=== PATIENT | female | born 1950 | race Caucasian/White ===

== ENCOUNTER 2018-08-09 00:44 | Outpatient (CLI) | payer MEDICARE, MEDICAID, SELFPAY ==
--- NOTE | 2018-08-09 09:30 | DI.MAMMO_ITS ---
SYMPTOM/DIAGNOSIS: SCREENING, Z12.31, PREVENTATIVE CARE Z00.00 MAMMOGRAM: 08/09 Mammograms were interpreted according to the usual protocol including computer analysis with CAD system, tomosynthesis and C view imaging. The breasts are of moderate density with fairly symmetrical distribution of fibroglandular tissue. No dominant mass or clumped microcalcification is identified in either breast. The current examination is compared with previous examinations including August 2016 and there has been no gross interval change in appearance in comparison with the previous studies. CONCLUSION: No specific evidence of malignancy at this time. Routine screening examinations are suggested at yearly intervals due to the family history of breast carcinoma. Category 1 breast density category B. MQSA ASSESSMENT OF FINDINGS: Negative. Category 1. Patient will receive a letter notifying them of these results. BI-RADS category B. There are scattered areas of fibroglandular density.
== END 2018-08-09 01:04 ==
PROVIDERS: PCP Nurse Practitioner Family; Visit Provider Physician Assistant Medical
DX: Z12.31 Encounter for screening mammogram for malignant neoplasm of breast (principal); Z80.3 Family history of malignant neoplasm of breast
CPT/HCPCS: 77063; 77067

== ENCOUNTER 2018-09-13 12:09 | Outpatient (REF) | payer MEDICARE, MEDICAID, SELFPAY ==
[2018-09-13 21:53] LABS: Cholesterol 238 mg/dL (50-200); Glucose 97 mg/dL (70-100); HDL Cholesterol 70 mg/dL (40-60); LDL CHOLESTEROL 139 mg/dL (<100); TSH 0.02 uIU/mL (0.358-3.74); Triglyceride 153 mg/dL (30-150)
== END 2018-09-13 12:29 ==
LOC: NCHCN 12:09
PROVIDERS: PCP Nurse Practitioner Family; Visit Provider Nurse Practitioner Family
DX: E78.5 Hyperlipidemia, unspecified (principal); E03.9 Hypothyroidism, unspecified
CPT/HCPCS: 80061; 82947; 83721; 84443

== ENCOUNTER 2018-12-09 08:51 | Outpatient (REF) | payer MEDICARE, MEDICAID, SELFPAY ==
[2018-12-09 22:12] LABS: ALT 39 U/L (12-78); AST 33 U/L (15-37); HDL Cholesterol 79 mg/dL (40-60); LDL CHOLESTEROL 88 mg/dL (<100); TSH 0.24 uIU/mL (0.358-3.74)
[2018-12-10 00:02] LABS: Creatine Kinase 154 U/L (26-192)
== END 2018-12-09 09:11 ==
LOC: NCHCN 08:51
PROVIDERS: PCP Nurse Practitioner Family; Visit Provider Nurse Practitioner Family
DX: I25.10 Atherosclerotic heart disease of native coronary artery without angina pectoris (principal); E03.9 Hypothyroidism, unspecified
CPT/HCPCS: 82550; 83721; 83718; 84443; 84450; 84460

== ENCOUNTER 2019-02-03 19:12 | Outpatient (REF) | payer MEDICARE, MEDICAID, SELFPAY | END 2019-02-03 19:32 | LOC: NCHCN 19:12 | PROVIDERS: PCP Nurse Practitioner Family; Visit Provider Specialist/Technologist Athletic Trainer | DX: R35.0 Frequency of micturition (principal) | CPT/HCPCS: 87077; 87086; 87186 ==

== ENCOUNTER 2019-03-14 14:29 | Outpatient (REF) | payer MEDICARE, MEDICAID, SELFPAY ==
[2019-03-14 21:33] LABS: Anion Gap 10.3 mmol/L (3-11); BUN 23 mg/dL (7-18); CO2 27.7 mmol/L (21.0-32.0); CREATININE 0.66 mg/dL (0.55-1.02); Calcium 9.9 mg/dL (8.5-10.1); Chloride 101 mmol/L (98-107); Glucose 98 mg/dL (70-100); Potassium 3.5 mmol/L (3.5-5.1); Sodium 139 mmol/L (136-145)
== END 2019-03-14 14:49 ==
LOC: NCHCN 14:29
PROVIDERS: PCP Nurse Practitioner Family; Visit Provider Nurse Practitioner Family
DX: I10 Essential (primary) hypertension (principal); E03.9 Hypothyroidism, unspecified
CPT/HCPCS: 80048; 84443

== ENCOUNTER 2019-10-12 00:51 | Outpatient (CLI) | payer MEDICARE, MEDICAID, SELFPAY ==
--- NOTE | 2019-10-12 11:33 | DI.MAMMO_ITS ---
EXAM: MG MAMMO SCREENING CLINICAL HISTORY: SCREENING, FAMILY HX BREAST CANCER Z80.3 TECHNIQUE: Mammograms were interpreted according to the usual protocol including computer analysis w [employer] CAD system, tomosynthesis and C-view imaging. COMPARISON: [id number] FINDINGS: The breasts are composed of fatty tissue, breast density category A. No suspicious masses or suspici ous microcalcifications or changes are seen. IMPRESSION: BI-RADS category 1, negative mammogram. Yearly screening mammography is recommended. BI-RADS Cat 1 - Negative Breast Density - Category A - Almost entirely fatty IMPRESSION:
== END 2019-10-12 01:11 ==
PROVIDERS: PCP Nurse Practitioner Family; Visit Provider Nurse Practitioner Family
DX: Z12.31 Encounter for screening mammogram for malignant neoplasm of breast (principal); Z80.3 Family history of malignant neoplasm of breast
CPT/HCPCS: 77063; 77067

== ENCOUNTER 2019-12-01 01:07 | Outpatient (CLI) | payer MEDICARE, MEDICAID, SELFPAY ==
--- NOTE | 2019-12-01 13:41 | DI.DEXA_ITS ---
EXAM: XR DEXA BONE DENSITY W/WO FELIPE INDICATION: ASYMPTOMATIC POSTMENOPAUSAL STATE Z78.0. COMPARISON: No exams were available for comparison TECHNIQUE: 2D digital imaging was performed. FINDINGS: No compression deformities are seen in the lateral spine. Evaluation of the left hip shows a total T-score of -1.5 and a Z-score of 0. This is consistent with osteopenia and an increased fracture risk. Evaluation of the lumbar spine shows a total T-score of -1.7 and a Z-score of 0.4. This is also cons istent with osteopenia and an increased fracture risk. There is no evidence of osteoporosis. IMPRESSION: No evidence of osteoporosis.
== END 2019-12-01 01:27 ==
PROVIDERS: PCP Nurse Practitioner Family; Visit Provider Nurse Practitioner Family
DX: M85.88 Other specified disorders of bone density and structure, other site (principal); Z78.0 Asymptomatic menopausal state
CPT/HCPCS: 77080

== ENCOUNTER 2020-03-13 08:49 | Outpatient (REF) | payer MEDICARE, MEDICAID, SELFPAY ==
[2020-03-13 19:40] LABS: ALT 49 U/L (14-59); AST 37 U/L (15-37); Albumin 4.2 g/dL (3.4-5.0); Alkaline Phosphatase 52 U/L (46-116); Anion Gap 6.7 mmol/L (3-11); BUN 23 mg/dL (7-18); Bilirubin, Total 0.5 mg/dL (0.2-1.0); CO2 31.3 mmol/L (21.0-32.0); CREATININE 0.79 mg/dL (0.55-1.02); Calcium 9.9 mg/dL (8.5-10.1); Chloride 102 mmol/L (98-107); Creatine Kinase 274 U/L (26-192); Glucose 96 mg/dL (74-106); Potassium 3.3 mmol/L (3.5-5.1); Sodium 140 mmol/L (136-145); TSH (W/Ref FT4) 1.92 uIU/mL (0.36-3.74); Total Protein 7.4 g/dL (6.4-8.2)
[2020-03-13 19:57] LABS: Calculated LDL 104 mg/dL (<100); Cholesterol 204 mg/dL (<200); HDL Cholesterol 71 mg/dL (40-60); Triglyceride 149 mg/dL (<150)
== END 2020-03-13 09:09 ==
LOC: NCHCN 08:49
PROVIDERS: PCP Nurse Practitioner Family; Visit Provider Nurse Practitioner Family
DX: E03.9 Hypothyroidism, unspecified (principal); I10 Essential (primary) hypertension; E78.5 Hyperlipidemia, unspecified; M85.80 Other specified disorders of bone density and structure, unspecified site
CPT/HCPCS: 80053; 80061; 82550; 84443

== ENCOUNTER 2020-07-02 16:14 | Outpatient (REF) | payer MEDICARE, MEDICAID, SELFPAY ==
[2020-07-02 20:13] LABS: Creatine Kinase 323 U/L (26-192); TSH 2.68 uIU/mL (0.36-3.74)
[2020-07-03 17:00] LABS: T3, Total 104 ng/dL (97-169)
== END 2020-07-02 16:34 ==
LOC: NCHCN 16:14
PROVIDERS: PCP Nurse Practitioner Family; Visit Provider Nurse Practitioner Family
DX: E03.9 Hypothyroidism, unspecified (principal); E78.5 Hyperlipidemia, unspecified
CPT/HCPCS: 82550; 84439; 84443; 84480

== ENCOUNTER 2020-08-06 16:07 | Outpatient (REF) | payer MEDICARE, MEDICAID, SELFPAY ==
[2020-08-06 20:16] LABS: Creatine Kinase 321 U/L (26-192)
== END 2020-08-06 16:27 ==
LOC: NCHCN 16:07
PROVIDERS: PCP Nurse Practitioner Family; Visit Provider Nurse Practitioner Family
DX: Z79.899 Other long term (current) drug therapy (principal)
CPT/HCPCS: 82550

== ENCOUNTER 2020-08-21 10:55 | Outpatient (CLI) | payer MEDICARE, MEDICAID, SELFPAY ==
[2020-08-23 13:12] LABS: Patient Race White; SARS-CoV-2 RNA Undetected (Undetected); SARS-CoV-2 Specimen Source Nasopharynx
== END 2020-08-21 11:15 ==
PROVIDERS: PCP Nurse Practitioner Family; Visit Provider Nurse Practitioner Family
DX: J02.9 Acute pharyngitis, unspecified (principal)
CPT/HCPCS: U0003

== ENCOUNTER 2020-09-24 08:23 | Outpatient (REF) | payer MEDICARE, MEDICAID, SELFPAY ==
[2020-09-24 19:24] LABS: Creatine Kinase 439 U/L (26-192)
== END 2020-09-24 08:43 ==
LOC: NCHCN 08:23
PROVIDERS: PCP Nurse Practitioner Family; Visit Provider Nurse Practitioner Family
DX: M60.9 Myositis, unspecified (principal)
CPT/HCPCS: 82550

== ENCOUNTER 2020-11-16 04:45 | Outpatient (CLI) | payer MEDICARE, MEDICAID, SELFPAY ==
--- NOTE | 2020-11-16 09:08 | DI.MAMMO_ITS ---
EXAM: MG MAMMO SCREENING CLINICAL HISTORY: SCREENING, FAMILY H/O BREAST CA,Z80.3 TECHNIQUE: Bilateral full field digital CC and MLO mammographic images were obtained with 3D tomosyn thesis and utilizing computer aided detection (CAD). COMPARISON: Available for comparison. FINDINGS: Masses/Architectural Distortion: None seen. Microcalcifications: No suspicious pleomorphic-type are seen. Skin Thickening/Nipple Retraction: None. IMPRESSION: 1. No significant interval change with no specific features of malignancy noted. 2. Unless there is more urgent need, screening mammography is recommended, as per [place] [employer] guidelines. BI-RADS Category 1 - Negative Breast Density - Category A - Almost entirely fatty Breast density category C or D implies that the patient has dense breast tissue. Dense breast tissue is very common and is not abnormal but dense breast tissue can make it harder to find cancer on a ma mmogram. Also, dense breast tissue may increase their breast cancer risk. This information about the result of the mammogram report was provided to the patient to raise their awareness. Use this report when you speak with the patient about their risks for breast cancer, which includes their family hist ory. At that time, you may recommend for more screening tests (Ultrasound or MRI) as they might be us eful based on their risk. A negative radiographic report should not delay biopsy if a dominant or clinically suspicious mass is present. Up to ten percent of cancers are not identified on mammography. A negative report may reinforce clinical impression. Adenosis and dense breasts may obscure an underlying neoplasm. False positive reports average 6 to 10%. Patient will receive a letter notifying them of these results.
== END 2020-11-16 05:05 ==
PROVIDERS: PCP Nurse Practitioner Family; Visit Provider Nurse Practitioner Family
DX: Z12.31 Encounter for screening mammogram for malignant neoplasm of breast (principal); Z80.3 Family history of malignant neoplasm of breast
CPT/HCPCS: 77063; 77067

== ENCOUNTER 2020-12-11 14:46 | Outpatient (REF) | payer MEDICARE, MEDICAID, SELFPAY ==
[2020-12-11 16:01] LABS: ALT 53 U/L (14-59); AST 44 U/L (15-37); Anion Gap 7.9 mmol/L (3-11); BUN 25 mg/dL (7-18); CO2 30.1 mmol/L (21.0-32.0); CREATININE 0.6 mg/dL (0.55-1.02); Calcium 10.3 mg/dL (8.5-10.1); Calculated LDL 102 mg/dL (<100); Chloride 103 mmol/L (98-107); Cholesterol 200 mg/dL (<200); Glucose 106 mg/dL (74-106); HDL Cholesterol 80 mg/dL (40-60); Potassium 3.3 mmol/L (3.5-5.1); Sodium 141 mmol/L (136-145); TSH 2.71 uIU/mL (0.36-3.74); Triglyceride 90 mg/dL (<150)
[2020-12-11 16:15] LABS: Creatine Kinase 480 U/L (26-192)
== END 2020-12-11 14:47 | disposition home or self-care (01) ==
LOC: NCHCN 14:46
PROVIDERS: PCP Nurse Practitioner Family; Visit Provider Nurse Practitioner Family
DX: R74.8 Abnormal levels of other serum enzymes (principal); E78.5 Hyperlipidemia, unspecified; E03.9 Hypothyroidism, unspecified
CPT/HCPCS: 80048; 80061; 82550; 84443; 84450; 84460

== ENCOUNTER 2021-02-26 23:12 | Outpatient (REF) | payer MEDICARE, MEDICAID, SELFPAY ==
[2021-02-26 16:44] LABS: Creatine Kinase 437 U/L (26-192)
== END 2021-02-26 23:13 | disposition home or self-care (01) ==
LOC: NCHCN 23:12
PROVIDERS: PCP Nurse Practitioner Family; Visit Provider Nurse Practitioner Family
DX: R74.8 Abnormal levels of other serum enzymes (principal); R89.9 Unspecified abnormal finding in specimens from other organs, systems and tissues; E03.9 Hypothyroidism, unspecified
CPT/HCPCS: 82550; 82310

== ENCOUNTER 2021-03-03 11:29 | Emergency (ER) | payer MEDICARE, MEDICAID, SELFPAY ==
[2021-03-03 11:38] VITALS: BP 138/70; PULSE 81; RESP 16; TEMP 37.4; O2SAT 95
--- NOTE | 2021-03-03 11:46 | ED.GENADUL_ITS ---
Discharge Plan Disposition Patient Disposition: HOME Condition: Stable Discharge Details Clinical Impression: Contusion of foot Primary Care Provider: Jil Rider ED Provider: Lawrence Dial Home Meds and New Rx's Prescriptions: Continued multivitamin [Daily Multiple] 1 EACH tablet 1 ea PO DAILY RF: 0 hydrochlorothiazide 50 MG tablet 50 mg PO DAILY RF: 0 acetaminophen [Tylenol Extra Strength] 500 MG tablet 500 mg PO Q8H PRN RF: 0 nitroglycerin [Nitrostat] 0.4 MG tablet, sublingual 0.4 mg Sublingual DIRECTED RF: 0 hydroxychloroquine [Plaquenil] 200 MG tablet 200 mg PO DAILY RF: 0 zolpidem [Ambien] 10 MG tablet 10 mg PO HS PRNRF: 0 albuterol sulfate [ProAir HFA] 8.5 GM HFA aerosol inhaler 2 puff Inhalation Q4H PRN RF: 0 loperamide [Anti-Diarrheal (loperamide)] 2 mg capsule 2 mg PO Q6H PRNRF: 0 naproxen sodium [Aleve] 220 mg capsule 220 mg PO BID PRNRF: 0 doxepin 10 mg capsule 10 mg PO QHS RF: 0 levothyroxine 88 mcg capsule 88 mcg PO DAILY RF: 0 cholecalciferol (vitamin D3) 25 mcg (1,000 unit) capsule 25 mcg PO DAILY RF: 0 rosuvastatin [Crestor] 10 mg tablet 10 mg PO DAILY RF: 0 Discharge Instructions Instructions: Foot Contusion (ED) Additional Instructions: Wear the short leg boot as needed, advance activity as tolerated. Rest, elevate, cool compresses every 2 hours for 20 minutes. [id number]-[id number] medication such as Tylenol and/or Motrin as directed for discomfort. Please watch for new or worsening symptoms and return to the ER for any concerns. I do recommend reaching out your primary care provider tomorrow to make them aware of your ER visit and potential need for outpatient reevaluation. Medical Decision Making 71-year-old female who accidentally kicked the border of her palate still 4 evenings ago, no significant pain at the time of injury but the following morning noticed increased pain and swelling. Has tried iubt-aop-arihphi remedies but pain persist. Clinically she appears well, nontoxic. Examination is more consistent with a contusion as opposed to a dislocation or fracture. Discussed options, patient is agreeable to obtaining x-ray to rule out any bony abnormality. X-ray obtained, read by radiology as no fracture. There is dorsal soft tissue swelling. Discussed x-ray findings with patient. Discussed disposition. Will use a short leg walking boot and reassess. Patient is able to ambulate slowly but steadily using the short leg walking boot, reports significant improvement of her symptoms. Does not require additional assistive device such as crutches, cane, walker. Patient has no additional questions or concerns and is comfortable discharge at this time Medical Records Medical records reviewed: Yes I reviewed the patient's medical records. Imaging Data Radiologic Study: Attestation: I personally reviewed and interpreted this imaging study as follows: Imaging: X-Ray Radiologist's impression: Foot x-ray no fracture, there is dorsal soft tissue swelling HPI General Mode of arrival: ambulatory . Date/Time Provider Initiated Documentation: 03/03/21 11:40 . Limitations to Documentation: no limitations . Information obtained by: patient . HPI Narrative: This is a 71-year-old female, past medical history of CAD, Graves' disease, hypertension, thyroid disease, osteoarthritis, osteopenia, presenting to the ER for a right foot injury that occurred 3 or 4 nights ago. She reports that she was wearing socks, when walking accidentally kicked the pellet stove brick border but the ball of her foot. She states that she did not have significant pain at the time but the nex t morning she noticed increasing pain, swelling, bruising. She denies falling or any other injury. Denies any numbness, tingling, weakness. She has been resting, elevating, using cool compresses, using [id number]-hcj-[id number] medications, but it is simply not getting better. Pain is moderate at rest, worse with movement or bearing weight Related Data Home Medications Medication Instructions Recorded Confirmed acetaminophen [Tylenol Extra 500 mg PO Q8H PRN tab-cap 09/19/15 12/17/15 Strength] albuterol sulfate [ProAir HFA] 2 puff INHALATION Q4H PRN inhaler 09/19/15 12/17/15 hydrochlorothiazide 50 mg PO DAILY tab-cap 09/19/15 12/18/15 hydroxychloroquine [Plaquenil] 200 mg PO DAILY tab-cap 09/19/15 12/18/15 multivitamin [Daily Multiple] 1 ea PO DAILY 09/19/15 12/18/15 nitroglycerin [Nitrostat] 0.4 mg SUBLINGUAL DIRECTED 09/19/15 12/17/15 zolpidem [Ambien] 10 mg PO HS PRN tab-cap 09/19/15 12/18/15 cholecalciferol (vitamin D3) 25 25 mcg PO DAILY 01/30/21 mcg (1,000 unit) capsule doxepin 10 mg capsule 10 mg PO QHS 01/30/21 levothyroxine 88 mcg capsule 88 mcg PO DAILY 01/30/21 loperamide 2 mg capsule 2 mg PO Q6H PRN 01/30/21 naproxen sodium 220 mg capsule 220 mg PO BID PRN 01/30/21 rosuvastatin 10 mg tablet 10 mg PO DAILY 01/30/21 Allergies Allergy/AdvReac Type Severity Reaction Status Date / Time ezetimibe [From Zetia] Allergy Severe none noted Verified 03/03/21 11:42 on referral trazodone Allergy Severe none noted Verified 03/03/21 11:42 on referral indomethacin [From Indocin] Allergy Mild Unverified 03/03/21 11:42 indomethacin sodium Allergy Mild elevates BP Unverified 03/03/21 11:42 [From Indocin] General Stated Complaint: Orthopedic RODERICK: 4 Review of Systems Constitutional Constitutional: Denies fever(s) and Denies weakness Musculoskeletal Musculoskeletal: Denies arthralgias, Denies numbness, Reports stiffness and Denies tingling Integumentary/Breasts Skin/Breast: Denies rash Neurologic Neurologic: Denies numbness, Denies tingling and Denies weakness PFSH Medical History Chest pain Coronary artery disease Elevated CPK Family history of breast cancer Family history of colon cancer Graves disease Hearing loss Heart murmur Hemangioma Hyperlipidemia Hypertension Hypothyroidism Insomnia Lyme disease Lymphocytic colitis Myositis Osteoarthritis Osteopenia Situational anxiety Syncope Tobacco use Social History Smoking/Tobacco Use Status: Former Tobacco Use Smoking risk assessment performed?: Yes Alcohol Intake: current Alcohol Intake frequency: a few times a month Drug use: Never Substance use type: does not use Do you feel safe at home: Yes Exam Const General: cooperative, healthy appearing, comfortable and no acute distress Orientation: alert, awake and oriented x3 HENMT Head: normal to inspection, normocephalic and atraumatic Eyes General: appearance normal, both eyes and all related structures Conjunctivae: conjunctivae normal Neck Neck: normal visual inspection, trachea midline and supple Resp Effort & Inspection: normal respiratory effort and able to speak in complete sentences Cardio Rate: regular rate Rhythm: regular rhythm Skin General skin exam: no rashes or lesions noted Neuro General: patient alert, patient awake, moves all extremities and no focal motor deficits Cognition: normal cognition Speech: speech normal Gait: antalgic Motor: muscle tone normal throughout Sensory Exam: no sensory deficits noted Extrem Ankle/foot/toe images: 1. Diffuse mild swelling, discomfort to palpation, ecchymosis. Skin is intact. Neuro, vascular, tendon intact. Able to fully dorsi and plantar flex. Normal capillary refill and pedal pulse. Ankle unremarkable. Psych Appearance: grossly normal Mental Status: mental status grossly normal Course Vital Signs Vital signs: Vital Signs Temperature 37.4 C 03/03/21 11:38 Pulse 81 03/03/21 11:38 Respiratory Rate 16 03/03/21 11:38 Blood Pressure 138/70 03/03/21 11:38 Pulse Oximetry 95 03/03/21 11:38 Temperature 37.4 C 03/03/21 11:38 Temperature Source Tympanic 03/03/21 11:38 Pulse 81 03/03/21 11:38 Respiratory Rate 16 03/03/21 11:38 Respiratory Effort Non-Labored 03/03/21 11:40 Blood Pressure 138/70 03/03/21 11:38 Blood Pressure Position Sitting 03/03/21 11:38 Pulse Oximetry 95 03/03/21 11:38 Oxygen Delivery Method Room Air 03/03/21 11:38 Oxygen Flow Rate 0 03/03/21 11:38 Pain Level 10 03/03/21 11:41
--- NOTE | 2021-03-03 12:09 | DI.RAD_ITS ---
EXAM: XR FOOT RT COMPLETE CLINICAL HISTORY: kicked stove. TECHNIQUE: 2D digital imaging was performed. COMPARISON: No exams were available for comparison FINDINGS: There is soft tissue swelling dorsally. No evidence of fracture nor diastasis of the Lisfranc joint. Bone density normal. No concerning osseous lesions. IMPRESSION: DATA REPOSITORY: RADIATION DOSE DELIVERED:
--- NOTE | 2021-03-03 12:31 | DI.VRAD_ITS ---
PROCEDURE INFORMATION: Exam: XR Right Foot Exam date and time: 03/03/2021 12:09 PM Age: 71 years old Clinical indication: Pain; Foot; Right; Patient HX: Kicked stove TECHNIQUE: Imaging protocol: XR Right foot. Views: 3 or more views. COMPARISON: No relevant prior studies available. FINDINGS: Bones/joints: Normal. Soft tissues: Dorsal soft tissue swelling. IMPRESSION: No fracture. Dictated and Authenticated by: Dexter Poon MD. Ordering:YIMI Bravo MD
== END 2021-03-03 13:33 | disposition home or self-care (01) ==
PROVIDERS: Emergency Provider Physician Assistant; PCP Nurse Practitioner Family
DX: S90.31XA Contusion of right foot, initial encounter (principal); W22.09XA Striking against other stationary object, initial encounter
CPT/HCPCS: 29515; 99283; 73630

== ENCOUNTER → 2021-05-03 13:20 | Outpatient (BNVA) | payer MEDICARE, MEDICAID, SELFPAY | PROVIDERS: PCP Nurse Practitioner Family; Referring Provider Nurse Practitioner Family; Visit Provider Physical Therapy Assistant | DX: Z12.11 Encounter for screening for malignant neoplasm of colon (principal); Z80.0 Family history of malignant neoplasm of digestive organs; I10 Essential (primary) hypertension ==

== ENCOUNTER 2021-05-15 02:13 | Outpatient (CLI) | payer MEDICARE, MEDICAID, SELFPAY ==
[2021-05-15 11:06] LABS: Source Nasal/Nares
[2021-05-15 13:31] LABS: COVID-19 PCR Negative (Negative)
== END 2021-05-15 02:14 | disposition home or self-care (01) ==
PROVIDERS: PCP Nurse Practitioner Family; Visit Provider Surgery
DX: Z20.822 Contact with and (suspected) exposure to COVID-19 (principal); Z01.818 Encounter for other preprocedural examination
CPT/HCPCS: 87635

== ENCOUNTER 2021-05-17 12:47 | Day surgery (SDC) | payer MEDICARE, MEDICAID, SELFPAY ==
[2021-05-17 12:59] VITALS: BP 120/69; PULSE 76; RESP 16; TEMP 36.4; O2SAT 98
--- NOTE | 2021-05-17 13:53 | W.ANESPRE ---
General Info Date of Service Date Performed: 05/17/21 Height: 4 ft 11.84 in Weight: 64.9 kg Body Mass Index (BMI): 28.0 Surgical Procedure: Operation Date: 05/17/21 11:50 Proposed Procedures Side Surgeon laura Ray, Meds Allergies and Home Medications Allergies Allergy/AdvReac Type Severity Reaction Status Date / Time ezetimibe [From Zetia] Allergy Severe none noted Verified 05/15/21 12:23 on referral trazodone Allergy Severe none noted Verified 05/15/21 12:23 on referral indomethacin [From Indocin] Allergy Mild Unverified 05/15/21 12:23 indomethacin sodium Allergy Mild elevates BP Unverified 05/15/21 12:23 [From Indocin] Home Medication Medication Instructions Recorded acetaminophen [Tylenol Extra 500 mg PO Q8H PRN tab-cap 09/19/15 Strength] albuterol sulfate [ProAir HFA] 2 puff INHALATION Q4H PRN inhaler 09/19/15 hydrochlorothiazide 50 mg PO DAILY tab-cap 09/19/15 hydroxychloroquine [Plaquenil] 200 mg PO DAILY tab-cap 09/19/15 multivitamin [Daily Multiple] 1 ea PO DAILY 09/19/15 nitroglycerin [Nitrostat] 0.4 mg SUBLINGUAL DIRECTED 09/19/15 zolpidem [Ambien] 10 mg PO HS PRN tab-cap 09/19/15 cholecalciferol (vitamin D3) 25 25 mcg PO DAILY 01/30/21 mcg (1,000 unit) capsule doxepin 10 mg capsule 10 mg PO QHS 01/30/21 levothyroxine 88 mcg capsule 88 mcg PO DAILY 01/30/21 loperamide 2 mg capsule 2 mg PO Q6H PRN 01/30/21 naproxen sodium 220 mg capsule 220 mg PO BID PRN 01/30/21 rosuvastatin 10 mg tablet 10 mg PO DAILY 01/30/21 bisacodyl 5 mg tablet,delayed 5 mg PO ONCE #4 tab 05/03/21 release polyethylene glycol 3350 17 238 g PO ONCE #238 g 05/03/21 gram/dose oral powder Current Visit Medications: Current Medications Generic Name Dose Route Start Last Admin Trade Name Freq PRN Reason Stop Dose Admin Hyoscyamine Sulfate 0.125 mg 05/16/21 22:26 Hyoscyamine 0.125 Mg Sl/Oral/Chew SL DIRECTED PRN Ringer's Solution 1,000 mls @ 80 mls/hr 05/17/21 13:30 IV INFUSION GLORIA Ondansetron HCl 4 mg 05/16/21 22:26 Ondansetron 4 Mg/2 Ml Vial IVP Q4H PRN PRN Nausea / Vomiting PFSH Active Problems Active Problems: Problem Status Onset Code Contusion of foot S90.30XA Medical History Medical History Chest pain Pt. states she has not had chest pain in over 3 years Coronary artery disease Pt. denies this Elevated CPK Family history of breast cancer Family history of colon cancer Graves disease Pt. states she had a thyroidectomy Hearing loss Heart murmur Pt. states last time she was at her PCP, there was no mumur heard. Hemangioma Hyperlipidemia Hypertension Hypothyroidism Insomnia Lyme disease Lymphocytic colitis Myositis Osteoarthritis Osteopenia Situational anxiety Syncope Pt. denies this Tobacco use Surgical History Surgical History History of colonoscopy (~12/18/15) Tobacco Smoking/Tobacco Use Status: Former Tobacco Use Alcohol Alcohol Intake: current Alcohol intake frequency: a few times a month Substance Use Substance use: Never Substance use type: does not use Vital Signs and Lab Results Vital Signs Most Recent Vital Signs in EMR: Most Recent Vital Signs Temp Pulse Resp BP Pulse Ox 36.4 C L 76 16 120/69 98 05/17/21 12:59 05/17/21 12:59 05/17/21 12:59 05/17/21 12:59 05/17/21 12:59 Lab Results Blood Type / Crossmatch: No Data to Display Complete Blood Count: No Data to Display Complete Metabolic Panel: No Data to Display Liver Function Panel: No Data to Display Coagulation Panel: No Data to Display Cardiac Panel: No Data to Display Arterial Blood Gas: No Data to Display Venous Blood Gas: No Data to Display Pancreas Panel: No Data to Display Thyroid Panel: No Data to Display Infectious Disease: Coronavirus (COVID-19)(PCR) Negative (Negative) 05/15/21 10:17 05/15/21 Coronavirus 2019 Source Nasal/Nares 05/15/21 10:17 05/15/21 Blood Cultures: No Data to Display Toxicology Panel: No Data to Display Imaging and Studies Imaging and Studies Echocardiogram Summary: 09/2016: *STUDY CONCLUSIONS* Impressions: Cannot exclude infective endocarditis based on this study. Mitral and tricuspid valve with thickening. No obvious vegetations. Correlate clinically. Summary: 1. Left ventricle: The cavity size was normal. Wall thickness was normal. Systolic function was normal. The estimated ejection fraction was 55-60%. Wall motion was normal; there were no regional wall motion abnormalities. 2. Right ventricle: The cavity size was normal. Systolic function was normal. 3. Mitral valve: Mildly calcified annulus. Mildly thickened, mildly calcified leaflets anterior greater than posterior. Focal calcification of subchordal apparatus. There was mild regurgitation. 4. Tricuspid valve: Mildly thickened, mildly calcified leaflets. There was moderate regurgitation. Anesthesia Assessment and Plan Anesthesia History Personal History: No History of Anesthesia Complications Family History: No Family History of Anesthesia Complications Exercise Tolerance Exercise Tolerance: Metabolic Equivalents>4 Pertinent Negatives Pertinent Negatives: No Symptoms of GERD, No Major Cardiovascular Symptoms or Complaints and No Major Pulmonary Symptoms or Complaints Cardiac & Pulmonary Exam Cardiac Exam: Normal S1/S2 Heart Sounds Pulmonary Exam: Clear Bilateral Breath Sounds Airway Exam Known Difficult Airway: No Mallampati Class: 3 Mouth Opening: Normal (> 3cm) Thyromental Distance: Greater than 3 cm Neck Range of Motion: Full ROM Neck Circumference: Normal Teeth Condition: Normal Dentition ASA Classification ASA Score: ASA 2 Emergency Case?: No NPO Status NPO Status: NPO Clears >2 hours, Solids >8 hours Anesthesia Plan Resuscitation Status: Full Code Anesthesia Technique: General Anesthesia Airway Planned: Natural Airway Monitors Used: Standard Monitors
[2021-05-17 13:57] VITALS: BMI 28.0
[2021-05-17] MEDS: Lactated Ringers 1,000 ML 80 ML IV (14:40)
--- NOTE | 2021-05-17 15:10 | BOWEL_PTH ---
PATIENT: Gabriela Hernandez LOC: [facility] U#:[id number] AGE/SX: 71/F ROOM: RE05/17/[address]: Carlie Ray : 1950 BED: DIS: 05/17/2021 SPEC #: [id number] RECD: 05/17/21 16:24 STATUS: JOAN REQ #: [id number] PAT: 05/17/21 15:[address]: Carlie Ray DEPT: Surgical Specimen RECD BY: Freda Zazueta ENTERED: 05/17/21 16:25 SP TYPE: Bowel OTHR DR: Jil Rider Tissues: 1 - BIOPSY BOWEL 2 - BIOPSY BOWEL Procedures: GROSS AND MICRO LEVEL 4 Comments: [id number]
[2021-05-17 15:20] VITALS: BP 89/59; PULSE 62; RESP 16; TEMP 36.3; O2SAT 97
[2021-05-17 15:50] VITALS: BP 132/82; PULSE 63; RESP 15; TEMP 36.4; O2SAT 97
--- NOTE | 2021-05-17 15:58 | W.ANESPOSTOP ---
Postoperative Evaluation Date, Time and Location Date Performed: 05/17/21 Time Performed: 15:58 Patient Location: Day Surgery Unit Vital Signs Most Recent Imported Vital Signs: Most Recent Vital Signs Temp Pulse Resp BP Pulse Ox 36.4 C L 63 15 132/82 97 05/17/21 15:50 05/17/21 15:50 05/17/21 15:50 05/17/21 15:50 05/17/21 15:50 Pain Score Most Recent Pain Score: Most Recent Pain Score Pain Level 0 05/17/21 15:50 Assessment Mental Status: Awake (Alert & Oriented to Patient Baseline) Airway and Respiratory Function: Patent airway with normal (patient baseline) respiratory exam Cardiovascular Function: Hemodynamically Stable Hydration Status: Adequately Hydrated Nausea & Vomiting: No Nausea or Vomiting Pain: Pt. Denies Any Pain Peripheral Nerve Block: Patient did not receive a nerve block
--- NOTE | 2021-05-17 16:12 | W.PM.DSUDISC ---
Discharge Plan Disposition Patient Disposition: HOME Condition: Good Discharge Details Reason For Visit: colon scope Attending Provider: Carlie Ray Primary Care Provider: Jil Rider Home Meds and New Rx's Prescriptions: Continued multivitamin [Daily Multiple] 1 EACH tablet 1 ea PO DAILY RF: 0 hydrochlorothiazide 50 MG tablet 50 mg PO DAILY RF: 0 acetaminophen [Tylenol Extra Strength] 500 MG tablet 500 mg PO Q8H PRN RF: 0 nitroglycerin [Nitrostat] 0.4 MG tablet, sublingual 0.4 mg Sublingual DIRECTED RF: 0 hydroxychloroquine [Plaquenil] 200 MG tablet 200 mg PO DAILY RF: 0 zolpidem [Ambien] 10 MG tablet 10 mg PO HS PRNRF: 0 albuterol sulfate [ProAir HFA] 8.5 GM HFA aerosol inhaler 2 puff Inhalation Q4H PRN RF: 0 loperamide [Anti-Diarrheal (loperamide)] 2 mg capsule 2 mg PO Q6H PRNRF: 0 naproxen sodium [Aleve] 220 mg capsule 220 mg PO BID PRNRF: 0 doxepin 10 mg capsule 10 mg PO QHS RF: 0 levothyroxine 88 mcg capsule 88 mcg PO DAILY RF: 0 cholecalciferol (vitamin D3) 25 mcg (1,000 unit) capsule 25 mcg PO DAILY RF: 0 rosuvastatin [Crestor] 10 mg tablet 10 mg PO DAILY RF: 0 Discontinued polyethylene glycol 3350 17 gram/dose powder 238 g PO ONCE Qty: 238 RF: 0 bisacodyl [Dulcolax (bisacodyl)] 5 mg tablet,delayed release (DR/EC) 5 mg PO ONCE Qty: 4 RF: 0 Discharge Instructions Additional Instructions: DSU Colonoscopy Post-Op Instructions Instructions for Everyone who is given Anesthesia: For your safety, please do the following for the next twenty-four (24) hours: *Do Not operate a motor vehicle (car, truck, motorcycle, etc.) *Do Not drink alcoholic beverages or use any recreational drugs for the first 24 hours or while taking pain medications. The medications in your body may have a reaction that can be dangerous. *Do Not make any important decisions or sign any important papers. Findings: x4 very small polyps Follow up: My office will send a letter in approximately 3 weeks w/ the type of polyps and when we want to repeat the scope. 1. No lifting over 20 pounds or strenuous activity for the first 24 hours after your procedure. After 24 hours there are no restrictions on your activity but you may feel fatigued for a few days. 2. After you arrive home you may have a light meal and return to your normal diet as you can tolerate it without feeling sick to your stomach. 3. You may have a bloated, gaseous feeling in your belly (abdomen) after a colonoscopy. Passing gas and belching will help. Walking or lying down on your left side with your knees flexed may relieve the discomfort. Call the office at [phone] (Office) or [phone] (Hospital) right away if you notice any of the following: a.Vomiting of blood or ?coffee ground stools?. b.Rectal bleeding 1Tbsp, blood clots or continuous bleeding. c.Severe belly (abdominal) pain. d.A hard distended belly (abdomen) and an inability to pass gas. 4. Please don?t expect to have a normal (bowel movement) for 2-3 days after your procedure. 5. If there are questions regarding the findings of your procedure, please contact your doctor 6. If you are unable to contact your doctor with a problem, contact the hospital at [phone]. 7. Continue all your regular medications unless directed otherwise. I understand the above instructions and have no questions. Signature of Patient or Adult Escort Name of Responsible Adult Escort Signature of Nurse Date/Time Activity:: see above Diet:: see above Discharge Orders Discharge Orders: Discharge Order (Routine); Ordered 05/16/21 Ordered By: Carlie Ray DS: Diagnosis Discharge Diagnosis (1) Hx of adenomatous colonic polyps: Status: Acute
--- NOTE | 2021-05-18 00:49 | COLE_ITS ---
Date of service: 05/17/21 Time of Service: 15:00 Colonoscopy Report Date of procedure: 05/17/21 Pre-op diagnosis general: +Father CRC/hx of polyps Post-op diagnosis procedure note: other (polyps) Surgeon: Carlie Ray Anesthesia Type: General:No Airway Estimated blood loss (mL): 1 Pathology: other Disposition: same day Prep: Miralax/Dulcolax Retraction Time: 15 mins Procedure Description: After informed consent was obtained the patient was taken to the procedure room and placed in a left decubitous position. Monitors were applied and a time out was done. The patients name, date of , procedure, allergies to medications and metal in their body was reviewed. The patient was then sedated. Once sedated and comfortable a rectal exam was done. External exam was normal. Internal exam revealed a normal sphincter tone and no palpable m asses. The scope was then introduced and retrofelexed. No internal hemorrhoids were identified. The scope was then advanced to the cecum w/out difficulty. The TI and appendiceal orifice were identified. The prep was . The scope was then slowly retracted over 15minutes back into the rectum. She had multiple small polyps. All of these are less than 5 mm and flat. All of them are removed with cold polypectomy forcep. 1 is removed at 80 cm. There are 4 between 20 and 30 cm that are removed and these are all placed in the same jar. There is no bleeding noted and all specimens are collected. She has no diverticular disease. The mucosa is again healthy. The scope was removed and the patient was woken up and taken back to Same day surgery in stable condition. The patient tolerated the procedure well and there were no immediate complications. Follow up: The patient should follow up in 5-10 years, path pd, unless they develop changes in bowel habits or other new gastrointestinal complaints.
== END 2021-05-17 16:25 | disposition home or self-care (01) ==
PROVIDERS: PCP Nurse Practitioner Family; Visit Provider Surgery
PROC: 0DJD8ZZ Inspection of Lower Intestinal Tract, Via Natural or Artificial Opening Endoscopic (ICD-10-PCS; CPT 45378; principal; 2021-05-17 11:45)
DX: Z12.11 Encounter for screening for malignant neoplasm of colon (principal); D12.4 Benign neoplasm of descending colon; Z80.0 Family history of malignant neoplasm of digestive organs; Z86.010 Personal history of colon polyps; I25.10 Atherosclerotic heart disease of native coronary artery without angina pectoris; I10 Essential (primary) hypertension; K63.5 Polyp of colon
CPT/HCPCS: 45380; 88305

== ENCOUNTER 2021-06-10 12:56 | Outpatient (REF) | payer MEDICARE, MEDICAID, SELFPAY ==
[2021-06-10 14:54] LABS: HCT 39.1 % (36.0-46.0); HGB 13.1 g/dL (11.2-15.7); MCH 29.6 pg (27.0-33.0); MCHC 33.5 % (32.0-36.0); MCV 88.5 fL (80-95); MPV 11.8 fL (8.0-11.0); Platelet Count 246 10^3/uL (130-400); RBC 4.42 10^6/uL (3.93-5.22); RDW 12.8 % (11.7-14.6); RDW-SD 41.9 fL; WBC 5.22 10^3/uL (4.4-10.8)
[2021-06-10 15:02] LABS: Calcium 9.9 mg/dL (8.5-10.1); Creatine Kinase 514 U/L (26-192)
== END 2021-06-10 12:57 | disposition home or self-care (01) ==
LOC: NCHCN 12:56
PROVIDERS: PCP Nurse Practitioner Family; Visit Provider Nurse Practitioner Family
DX: M60.9 Myositis, unspecified (principal); D22.9 Melanocytic nevi, unspecified; R74.8 Abnormal levels of other serum enzymes; Z79.899 Other long term (current) drug therapy; R89.8 Other abnormal findings in specimens from other organs, systems and tissues
CPT/HCPCS: 82550; 85027; 82310

== ENCOUNTER 2021-12-17 16:45 | Outpatient (REF) | payer MEDICARE, MEDICAID, SELFPAY ==
[2021-12-17 20:17] LABS: ALT 53 U/L (14-59); AST 45 U/L (15-37); Anion Gap 7.3 mmol/L (3-11); BUN 15 mg/dL (7-18); CO2 30.7 mmol/L (21.0-32.0); CREATININE 0.8 mg/dL (0.55-1.02); Calcium 9.4 mg/dL (8.5-10.1); Chloride 103 mmol/L (98-107); Glucose 81 mg/dL (74-106); HDL Cholesterol 75 mg/dL (40-60); LDL CHOLESTEROL 76 mg/dL (<100); Potassium 3.7 mmol/L (3.5-5.1); Sodium 141 mmol/L (136-145); TSH (W/Ref FT4) 5.44 uIU/mL (0.36-3.74)
[2021-12-17 20:38] LABS: Creatine Kinase 345 U/L (26-192); FREE T4 1.01 ng/dL (0.76-1.46)
== END 2021-12-17 16:46 | disposition home or self-care (01) ==
LOC: NCHCN 16:45
PROVIDERS: PCP Nurse Practitioner Family; Visit Provider Nurse Practitioner Family
DX: E78.5 Hyperlipidemia, unspecified (principal); E03.9 Hypothyroidism, unspecified
CPT/HCPCS: 80048; 82550; 83721; 83718; 84439; 84443; 84450; 84460

== ENCOUNTER 2022-02-19 10:52 | Outpatient (REF) | payer MEDICARE, MEDICAID, SELFPAY ==
[2022-02-19 16:03] LABS: TSH (W/Ref FT4) 2.13 uIU/mL (0.36-3.74)
== END 2022-02-19 10:53 | disposition home or self-care (01) ==
LOC: NCHCN 10:52
PROVIDERS: PCP Nurse Practitioner Family; Visit Provider Nurse Practitioner Family
DX: E03.9 Hypothyroidism, unspecified (principal)
CPT/HCPCS: 80053; 80061; 82550; 85027; 83036; 84443

== ENCOUNTER 2022-02-26 01:45 | Outpatient (CLI) | payer MEDICARE, MEDICAID, SELFPAY ==
--- NOTE | 2022-02-26 11:30 | DI.MAMMO_ITS ---
Exam(s) MAMMO SCREENING EXAM: MAMMO SCREENING CLINICAL HISTORY: SCREENING, FAMILY H/O BREAST CA, Z80.3 TECHNIQUE: Mammograms were interpreted according to the usual protocol including computer analysis w [employer] CAD system, tomosynthesis and C-view imaging. COMPARISON: FINDINGS: The breasts are of moderate density with fairly symmetrical distribution of fibroglandular tissue. N o dominant mass or clumped microcalcification is identified in either breast. Current examination is compared with previous examinations including November 2020 and there has been no gross interval gar ge in appearance in comparison with the prior studies. IMPRESSION: No specific evidence of malignancy at this time. Routine screening examinations are suggested at yea rly intervals due to the family history of breast carcinoma. BI-RADS Category 1 - Negative Breast Density - Category B - Scattered areas of fibroglandular density
== END 2022-02-26 02:05 ==
PROVIDERS: PCP Nurse Practitioner Family; Visit Provider Nurse Practitioner Family
DX: Z12.31 Encounter for screening mammogram for malignant neoplasm of breast (principal); Z80.3 Family history of malignant neoplasm of breast
CPT/HCPCS: 77063; 77067

== ENCOUNTER → 2022-06-19 00:59 | Outpatient (CLI) | payer MEDICARE, MEDICAID, SELFPAY ==
--- NOTE | 2022-06-19 | DI.RAD_ITS ---
Exam(s) XR ARTHRITIS SERIES EXAM: XR ARTHRITIS SERIES CLINICAL HISTORY: OA HANDS, M19.049. TECHNIQUE: 2D digital imaging was performed. COMPARISON: No exams were available for comparison FINDINGS: Two-views: PA and [place] No evidence of fracture nor subluxations. There are advanced degenerative changes at the DIP joints of the 2nd-index fingers bilaterally as wel l as the DIP joints of the bilateral 5th fingers. More moderate involvement of the DIP joints of the other fingers noted as well as the PIP joints and relative sparing of the metacarpophalangeal joints . Also relative sparing of the articulations of the thumbs with the exception of 1st carpometacarpal joints which exhibit moderate degenerative changes bilaterally. Other carpal row bones and articula tions appear unremarkable. There is no prominent periarticular osteopenia. No erosions evident. IMPRESSION: Significant findings in the distal interphalangeal joints, most prominent in the DIP joints of the 2n d and 5th fingers of both hands. Also in the proximal interphalangeal joints. There is relative spa ring of the MCP joints. Moderate degenerative changes in the 1st carpometacarpal joints bilaterally. DATA REPOSITORY: RADIATION DOSE DELIVERED:
== END ==
PROVIDERS: PCP Nurse Practitioner Family; Visit Provider Nurse Practitioner Family
DX: M18.0 Bilateral primary osteoarthritis of first carpometacarpal joints (principal)
CPT/HCPCS: 73120

== ENCOUNTER 2022-06-19 14:15 | Outpatient (REF) | payer MEDICARE, MEDICAID, SELFPAY ==
[2022-06-19 14:52] LABS: HCT 39.3 % (36.0-46.0); HGB 13.3 g/dL (11.2-15.7); MCH 29.7 pg (27.0-33.0); MCHC 33.8 % (32.0-36.0); MCV 88 fL (80-95); MPV 11.6 fL (8.0-11.0); Platelet Count 239 10^3/uL (130-400); RBC 4.48 10^6/uL (3.93-5.22); RDW 12.4 % (11.7-14.6); RDW-SD 40.1 fL; WBC 5.27 10^3/uL (4.4-10.8)
[2022-06-19 14:55] LABS: ESR 26 mm/hr (0-30)
[2022-06-19 15:02] LABS: C-Reactive Protein < 0.05 mg/dL (0.0-0.3)
== END 2022-06-19 14:16 | disposition home or self-care (01) ==
LOC: NCHCN 14:15
PROVIDERS: PCP Nurse Practitioner Family; Visit Provider Nurse Practitioner Family
DX: M60.9 Myositis, unspecified (principal); M19.041 Primary osteoarthritis, right hand; F51.04 Psychophysiologic insomnia; M19.042 Primary osteoarthritis, left hand
CPT/HCPCS: 85027; 85652; 86140

== ENCOUNTER 2022-09-11 06:58 | Emergency (ER) | payer MEDICARE, MEDICAID, SELFPAY ==
[2022-09-11 07:03] VITALS: BP 177/87; PULSE 73; RESP 18; TEMP 36.9; O2SAT 99
[2022-09-11] MEDS: Acetaminophen 325 MG TAB 650 MG PO (07:16)
--- NOTE | 2022-09-11 07:33 | DI.CT_ITS ---
Exam(s) CT HEAD WO EXAM: CT HEAD WO CLINICAL HISTORY: fall, frontal contusion, hematoma. TECHNIQUE: Imaging Protocol: Axial computed tomography images with coronal and sagittal reformatted images were created and reviewed COMPARISON: No exams were available for comparison FINDINGS: There is mild generalized cerebral atrophy. There is a large left frontal scalp hematoma. No evidence of acute intracranial hemorrhage, mass effect, or midline shift. The orbital structures are unremarkable. The temporal bone structures appear intact. Calvarium: Normal. Visualized Paranasal sinuses/Mastoids: Clear. IMPRESSION: No evidence of acute intracranial process. RADIATION DOSE DELIVERED: 718.77mGy.cm Total DLP 718.77mGy.cm Total DLP !Error CTDIvol DATA REPOSITORY: All CT scans at this facility are submitted to the National Radiology Data Registry (NRDR) Dose Index Registry (DIR) with the [employer] (ACR). RADIATION OPTIMIZATION: All CT scans at this facility use at least one of these dose optimization te chniques: automated exposure control; mA and/or kV adjustment per patient size (includes targeted exa ms where dose is matched to clinical indication); or iterative reconstruction.
--- NOTE | 2022-09-11 07:42 | DI.RAD_ITS ---
Exam(s) XR HAND RT COMPLETE EXAM: XR HAND RT COMPLETE CLINICAL HISTORY: fall, hand hematoma TECHNIQUE: COMPARISON: CR XR ARTHRITIS SERIES from 06/19/2022 FINDINGS: Four views were obtained. There are degenerative changes of the IP joints. There is a spiral fractu re of the midshaft of the 4th metacarpal with mild displacement and mild comminution. No additional fracture seen. IMPRESSION: RADIATION DOSE DELIVERED: Total DLP
--- NOTE | 2022-09-11 07:45 | W.ED.GENAD ---
Discharge Plan Disposition Patient Disposition: HOME Condition: Stable Discharge Details Clinical Impression: Hematoma of frontal scalp, Head injury, Fracture, metacarpal Primary Care Provider: Jil Rider ED Provider: Lj Santillan Home Meds and New Rx's Prescriptions: No Action multivitamin [Daily Multiple] 1 EACH tablet 1 ea PO DAILY hydrochlorothiazide 50 MG tablet 50 mg PO DAILY acetaminophen [Tylenol Extra Strength] 500 MG tablet 500 mg PO Q8H PRN nitroglycerin [Nitrostat] 0.4 MG tablet, sublingual 0.4 mg Sublingual DIRECTED hydroxychloroquine [Plaquenil] 200 MG tablet 200 mg PO DAILY zolpidem [Ambien] 10 MG tablet 10 mg PO HS PRN albuterol sulfate [ProAir HFA] 8.5 GM HFA aerosol inhaler 2 puff Inhalation Q4H PRN loperamide [Anti-Diarrheal (loperamide)] 2 mg capsule 2 mg PO Q6H PRN naproxen sodium [Aleve] 220 mg capsule 220 mg PO BID PRN doxepin 10 mg capsule 10 mg PO QHS levothyroxine 88 mcg capsule 88 mcg PO DAILY cholecalciferol (vitamin D3) 25 mcg (1,000 unit) capsule 25 mcg PO DAILY rosuvastatin [Crestor] 10 mg tablet 10 mg PO DAILY Discharge Instructions Instructions: Hand Fracture (ED), Head Injury (ED) Additional Instructions: Please follow-up with orthopedic surgery team next week. Please return to the emergency department for any further needs. Medical Decision Making 72-year-old female presents after fall last night fall and striking left head as well as right hand, no loss of conscious, large hematoma to left frontal scalp, alert oriented cranial nerves intact 5 and 5 strength upper lower extremities, no ataxia. Hematoma to right dorsum of hand, flexion extension of fingers intact, radial pulse intact soft compartments median radial ulnar nerve distribution intact. Given age and mechanism of injury and degree of hematoma have obtained CT head which is negative for intracranial process. X-ray of hand showing comminuted minimally displaced fracture of fourth metacarpal. Will place patient in ulnar gutter. Will be given hand referral. Home with care instructions and return precautions Patient placed in ulnar gutter splint. Sensation and capillary refill intact. Contacting orthopedic service here to determine whether patient will follow-up here at [facility] or need hand referral to [facility]. HPI General Date/Time Provider Initiated Documentation: 09/11/22 07:10. HPI Narrative: 72-year-old female presents after falling yesterday evening tripped and fell over her cat paraphernalia, struck her head on the ground, no loss of consciousness. Large hematoma to left frontal scalp. Denies blood thinner use. Also injured left hand Related Data Home Medications Medication Instructions Recorded Confirmed acetaminophen 500 mg tablet 500 mg PO Q8H PRN 09/19/15 05/17/21 (Tylenol Extra Strength) albuterol sulfate 90 mcg/actuation 2 puff inhalation Q4H PRN 09/19/15 05/17/21 aerosol inhaler (ProAir HFA) hydrochlorothiazide 50 mg tablet 50 mg PO DAILY 09/19/15 05/17/21 hydroxychloroquine 200 mg tablet 200 mg PO DAILY 09/19/15 05/17/21 (Plaquenil) multivitamin (Daily Multiple 1 ea PO DAILY 09/19/15 05/17/21 tablet) nitroglycerin 0.4 mg sublingual 0.4 mg sublingual DIRECTED 09/19/15 05/17/21 tablet (Nitrostat) zolpidem 10 mg tablet (Ambien) 10 mg PO HS PRN 09/19/15 05/17/21 cholecalciferol (vitamin D3) 25 25 mcg PO DAILY 01/30/21 05/17/21 mcg (1,000 unit) capsule doxepin 10 mg capsule 10 mg PO QHS 01/30/21 05/17/21 levothyroxine 88 mcg capsule 88 mcg PO DAILY 01/30/21 05/17/21 loperamide 2 mg capsule 2 mg PO Q6H PRN 01/30/21 05/17/21 (Anti-Diarrheal (loperamide)) naproxen sodium 220 mg capsule 220 mg PO BID PRN 01/30/21 05/17/21 (Aleve) rosuvastatin 10 mg tablet (Crestor) 10 mg PO DAILY 01/30/21 05/17/21 Allergies Allergy/AdvReac Type Severity Reaction Status Date / Time ezetimibe [From Zetia] Allergy Severe none noted Verified 09/11/22 07:53 on referral trazodone Allergy Severe none noted Verified 09/11/22 07:53 on referral indomethacin [From Indocin] Allergy Mild Unverified 09/11/22 07:53 indomethacin sodium Allergy Mild elevates BP Unverified 09/11/22 07:53 [From Indocin] General Stated Complaint: Trauma RODERICK: 3 Review of Systems Narrative: Review of Systems Constitutional: negative Eyes: negative ENT: negative Cardiovascular: negative Respiratory: negative Gastrointestinal: negative : negative Musculoskeletal: Hand injury Skin: negative Neurologic: Head injury Psych: negative PFSH All Active Problems (Updated 09/11/22 @ 08:27 by Lj Santillan MD) Hematoma of frontal scalp (Acute) Head injury (Acute) Fracture, metacarpal (Acute) Colon polyp, hyperplastic (Acute ~05/2021) Serrated adenoma of colon (Acute ~05/2021) Hx of adenomatous colonic polyps (Acute) Contusion of foot (Acute) Medical History Chest pain Pt. states she has not had chest pain in over 3 years Coronary artery disease Pt. denies this Elevated CPK Family history of breast cancer Family history of colon cancer Graves disease Pt. states she had a thyroidectomy Hearing loss Heart murmur Pt. states last time she was at her PCP, there was no mumur heard. Hemangioma Hyperlipidemia Hypertension Hypothyroidism Insomnia Lyme disease Lymphocytic colitis Myositis Osteoarthritis Osteopenia Situational anxiety Syncope Pt. denies this Tobacco use Surgical History (Updated 05/23/21 @ 11:05 by Toma Dumont RN) History of colonoscopy (~12/18/15) History of colonoscopy with polypectomy (~05/17/21) Social History Smoking/Tobacco Use Status: Former Tobacco Use Quit Date: 11/09/09 Smoking risk assessment performed?: Yes Alcohol Intake: current Alcohol Intake frequency: a few times a month Drug use: Never Substance use type: does not use Do you feel safe at home: Yes Do you feel safe in your relationship?: Yes Exam Narrative Exam Narrative: Physical Examination General: alert, awake, cooperative, resting comfortably, no acute distress HEENT: normocephalic, large left frontal scalp hematoma; PERRL, EOM intact, conjunctiva normal; no nasal discharge; moist mucous membranes, oral and pharyngeal mucosa normal, tolerating secretions Neck: supple, trachea midline; full ROM Chest: normal to inspection Respiratory: normal respiratory effort, speaking in full sentences, clear to auscultation, no wheezing, rales or rhonchi Cardiac: regular rate, regular rhythm, S1S2 intact, no murmurs rubs or gallops GI: abdomen soft, non-tender, non-distended; no palpable mass or hepatosplenomegaly Skin: no lesions, rashes or trauma appreciated Neuro: AAOx3, normal speech, moving all extremities; cranial nerves intact 5 and 5 strength upper and lower extremities; Extremities: Hematoma to right hand dorsal aspect, sensation median radial ulnar nerve distribution intact flexion extension fingers intact, radial pulse intact soft compartments. Psych: Appropriate mood and affect Course Vital Signs Vital signs: Vital Signs Temperature 36.9 C 09/11/22 07:03 Pulse 73 09/11/22 07:03 Respiratory Rate 18 09/11/22 07:03 Blood Pressure 177/87 H 09/11/22 07:03 Pulse Oximetry 99 09/11/22 07:03 Temperature 36.9 C 09/11/22 07:03 Temperature Source Temporal Artery Scan 09/11/22 07:03 Pulse 73 09/11/22 07:03 Respiratory Rate 18 09/11/22 07:03 Respiratory Effort Non-Labored 09/11/22 07:08 Respiratory Depth Normal 09/11/22 07:08 Respiratory Pattern Normal 09/11/22 07:08 Blood Pressure 177/87 H 09/11/22 07:03 Blood Pressure Position Sitting 09/11/22 07:03 Pulse Oximetry 99 09/11/22 07:03 Oxygen Delivery Method Room Air 09/11/22 07:03 Oxygen Flow Rate 0 09/11/22 07:03
[2022-09-11] MEDS: Ketorolac 15 MG/ML VIAL IM (08:55)
== END 2022-09-11 09:11 | disposition home or self-care (01) ==
PROVIDERS: Emergency Provider Emergency Medicine; PCP Nurse Practitioner Family
DX: S62.324A Displaced fracture of shaft of fourth metacarpal bone, right hand, initial encounter for closed fracture (principal); S00.03XA Contusion of scalp, initial encounter; W01.198A Fall on same level from slipping, tripping and stumbling with subsequent striking against other object, initial encounter; I10 Essential (primary) hypertension
CPT/HCPCS: 29125; 96372; 99284; 70450; 73130; J1885

== ENCOUNTER 2022-09-22 15:30 | Outpatient (CLI) | payer MEDICARE, MEDICAID, SELFPAY ==
--- NOTE | 2022-09-22 15:00 | DI.RAD_ITS ---
Exam(s) XR HAND RT COMPLETE EXAM: XR HAND RT COMPLETE CLINICAL HISTORY: R hand fx. TECHNIQUE: 2D digital imaging was performed. Three views. COMPARISON: CR XR HAND RT COMPLETE from 09/11/2022 FINDINGS: BONES: There has been no change in the alignment of the 4th metacarpal fracture. Advanced degenerati ve changes of the interphalangeal joints and 1st carpal metacarpal joint are again noted. JOINTS: No dislocation present. SOFT TISSUE: Normal. IMPRESSION: Stable fracture alignment. DATA REPOSITORY: RADIATION DOSE DELIVERED:
== END 2022-09-22 15:31 | disposition home or self-care (01) ==
LOC: DIORS 15:30
PROVIDERS: PCP Nurse Practitioner Family; Referring Provider Nurse Practitioner Family; Visit Provider Physician Assistant
DX: S62.304D Unspecified fracture of fourth metacarpal bone, right hand, subsequent encounter for fracture with routine healing (principal); W19.XXXD Unspecified fall, subsequent encounter
CPT/HCPCS: 99214; 73130

== ENCOUNTER 2022-10-30 10:35 | Outpatient (CLI) | payer MEDICARE, MEDICAID, SELFPAY ==
--- NOTE | 2022-10-30 10:23 | DI.RAD_ITS ---
Exam(s) XR HAND RT COMPLETE EXAM: XR HAND RT COMPLETE CLINICAL HISTORY: right hand f/u. TECHNIQUE: 2D digital imaging was performed. Three views. COMPARISON: CR XR HAND RT COMPLETE from 09/22/2022 FINDINGS: There has been no change in the alignment of the 4th metacarpal fracture. There is callus formation around the fracture. Degenerative changes are again noted greatest of the interphalangeal joints of the 2nd and 5th fingers. DATA REPOSITORY: RADIATION DOSE DELIVERED:
== END 2022-10-30 10:36 | disposition home or self-care (01) ==
LOC: DIORS 10:35
PROVIDERS: PCP Nurse Practitioner Family; Referring Provider Nurse Practitioner Family; Visit Provider Student in an Organized Health Care Education/Training Program
DX: S62.304D Unspecified fracture of fourth metacarpal bone, right hand, subsequent encounter for fracture with routine healing (principal); X58.XXXD Exposure to other specified factors, subsequent encounter
CPT/HCPCS: 99213; 73130

== ENCOUNTER 2022-11-28 10:30 | Outpatient (CLI) | payer MEDICARE, MEDICAID, SELFPAY ==
--- NOTE | 2022-11-28 10:27 | DI.RAD_ITS ---
Exam(s) XR HAND RT COMPLETE EXAM: XR HAND RT COMPLETE CLINICAL HISTORY: f/u 4th metacarpal fx. TECHNIQUE: 2D digital imaging was performed of the right hand. Three images were obtained. AP, late ral and oblique views were obtained. COMPARISON: CR XR HAND RT COMPLETE from 10/30/2022 FINDINGS: BONES: No acute fracture is present. No bony destructive lesion is seen. The 4th metacarpal fracture appears well healed. JOINTS: No dislocation present. There are marked degenerative changes of the hand and wrist. SOFT TISSUE: Normal. IMPRESSION: Marked degenerative changes of the hand. DATA REPOSITORY: RADIATION DOSE DELIVERED:
== END 2022-11-28 10:31 | disposition home or self-care (01) ==
LOC: DIORS 10:31
PROVIDERS: PCP Nurse Practitioner Family; Referring Provider Nurse Practitioner Family; Visit Provider Student in an Organized Health Care Education/Training Program
DX: S62.304D Unspecified fracture of fourth metacarpal bone, right hand, subsequent encounter for fracture with routine healing (principal); X58.XXXD Exposure to other specified factors, subsequent encounter
CPT/HCPCS: 99213; 73130

== ENCOUNTER 2023-01-06 12:05 | Outpatient (REF) | payer MEDICARE, MEDICAID, SELFPAY ==
[2023-01-06 16:49] LABS: ALT 52 U/L (14-59); AST 43 U/L (15-37); Albumin 4.3 g/dL (3.4-5.0); Alkaline Phosphatase 80 U/L (46-116); Anion Gap 9.2 mmol/L (3-11); BUN 14 mg/dL (7-18); Bilirubin, Total 0.3 mg/dL (0.2-1.0); CO2 30.8 mmol/L (21.0-32.0); CREATININE 0.8 mg/dL (0.55-1.02); Calcium 9.8 mg/dL (8.5-10.1); Chloride 103 mmol/L (98-107); Estimated GFR 78.24 (mL/min/1.73m2); Glucose 95 mg/dL (74-106); HDL Cholesterol 85 mg/dL (40-60); LDL CHOLESTEROL 79 mg/dL (<100); Potassium 3.5 mmol/L (3.5-5.1); Sodium 143 mmol/L (136-145); TSH 1.67 uIU/mL (0.36-3.74); Total Protein 8.2 g/dL (6.4-8.2)
[2023-01-06 17:07] LABS: FREE T4 1.18 ng/dL (0.76-1.46)
[2023-01-07 12:10] LABS: Creatine Kinase 425 U/L (26-192)
== END 2023-01-06 12:06 | disposition home or self-care (01) ==
LOC: NCHCN 12:05
PROVIDERS: PCP Nurse Practitioner Family; Visit Provider Nurse Practitioner Family
DX: E78.5 Hyperlipidemia, unspecified (principal); E03.9 Hypothyroidism, unspecified; I10 Essential (primary) hypertension
CPT/HCPCS: 80053; 82550; 83721; 83718; 84439; 84443

== ENCOUNTER 2023-03-03 01:49 | Outpatient (CLI) | payer MEDICARE, MEDICAID, SELFPAY ==
--- NOTE | 2023-03-03 | DI.MAMMO_ITS ---
Exam(s) MAMMO SCREENING EXAM: MAMMO SCREENING category 1 CLINICAL HISTORY: SCREENING, Z12.39, SCREENING FOR BREAST CA, Z12.31 TECHNIQUE: Bilateral full field digital CC and MLO mammographic images were obtained with 3D tomosyn thesis and utilizing computer aided detection (CAD). COMPARISON: Available for comparison. FINDINGS: Masses/Architectural Distortion: None seen. Microcalcifications: No suspicious pleomorphic-type are seen. Skin Thickening/Nipple Retraction: None. IMPRESSION: 1. No significant interval change with no specific features of malignancy noted. 2. Unless there is more urgent need, screening mammography is recommended, as per [place] [employer] guidelines. BI-RADS Category 1 - Negative Breast Density - Category A - Almost entirely fatty Breast density category C or D implies that the patient has dense breast tissue. Dense breast tissue is very common and is not abnormal but dense breast tissue can make it harder to find cancer on a ma mmogram. Also, dense breast tissue may increase their breast cancer risk. This information about the result of the mammogram report was provided to the patient to raise their awareness. Use this report when you speak with the patient about their risks for breast cancer, which includes their family hist ory. At that time, you may recommend for more screening tests (Ultrasound or MRI) as they might be us eful based on their risk. A negative radiographic report should not delay biopsy if a dominant or clinically suspicious mass is present. Up to ten percent of cancers are not identified on mammography. A negative report may reinforce clinical impression. Adenosis and dense breasts may obscure an underlying neoplasm. False positive reports average 6 to 10%. Patient will receive a letter notifying them of these results.
== END 2023-03-03 02:09 ==
LOC: DI 01:49
PROVIDERS: PCP Nurse Practitioner Family; Visit Provider Nurse Practitioner Family
DX: Z12.31 Encounter for screening mammogram for malignant neoplasm of breast (principal)
CPT/HCPCS: 77063; 77067

== ENCOUNTER 2023-07-14 13:44 | Outpatient (REF) | payer MEDICARE, MEDICAID, SELFPAY ==
[2023-07-14 16:44] LABS: HCT 38.4 % (36.0-46.0); MCH 29.7 pg (27.0-33.0); MCHC 33.9 % (32.0-36.0); MCV 88 fL (80-95); MPV 11.6 fL (8.0-11.0); Platelet Count 252 10^3/uL (130-400); RBC 4.38 10^6/uL (3.93-5.22); RDW 13.1 % (11.7-14.6); RDW-SD 41.8 fL; WBC 6.48 10^3/uL (4.4-10.8)
[2023-07-14 17:29] LABS: ALT 44 U/L (14-59); AST 38 U/L (15-37); Albumin 4.1 g/dL (3.4-5.0); Alkaline Phosphatase 73 U/L (46-116); Anion Gap 7.9 mmol/L (3-11); BUN 17 mg/dL (7-18); Bilirubin, Total 0.4 mg/dL (0.2-1.0); CO2 31.1 mmol/L (21.0-32.0); CREATININE 0.8 mg/dL (0.55-1.02); Calcium 9.7 mg/dL (8.5-10.1); Chloride 100 mmol/L (98-107); Estimated GFR 77.75 (mL/min/1.73m2); Glucose 96 mg/dL (74-106); HDL Cholesterol 82 mg/dL (40-60); LDL CHOLESTEROL 76 mg/dL (<100); Potassium 3.8 mmol/L (3.5-5.1); Sodium 139 mmol/L (136-145); TSH 1.34 uIU/mL (0.36-3.74); Total Protein 7.6 g/dL (6.4-8.2)
[2023-07-14 17:38] LABS: Vitamin D 25 Total 27.1 ng/mL (30-100)
[2023-07-14 18:39] LABS: C-Reactive Protein 0.24 mg/dL (0.0-0.3); Creatine Kinase 309 U/L (26-192); FREE T4 1.23 ng/dL (0.76-1.46)
== END 2023-07-14 13:45 | disposition home or self-care (01) ==
LOC: NCHCN 13:44
PROVIDERS: PCP Nurse Practitioner Family; Visit Provider Nurse Practitioner Family
DX: R07.9 Chest pain, unspecified (principal); R00.0 Tachycardia, unspecified
CPT/HCPCS: 80053; 82306; 82550; 83721; 85027; 83718; 84439; 84443; 86140

== ENCOUNTER → 2023-07-21 00:30 | Outpatient (CLI) | payer MEDICARE, MEDICAID, SELFPAY ==
--- NOTE | 2023-07-21 | ETT_ITS ---
APPROVED REPORT Exam: Exercise Treadmill Patient Location: Out-Patient Room/Bed: Stress Nurse: May Severino RN Ordering Provider:SIGRID CENTENO, Contact Number: [phone] BMI: 25.38 Baseline Rhythm: Sinus Rhythm Comment: Ocassional PAC's Indications: Chest pain, tachycardia Medical History Medical History: HLD, HTN, CAD (patient denies this), chest pain Cardiac Medications: Nitro, rosuvastatin, hydrochlorathiazide, albuterol sulfate Allergies: Trazodone, indomethacin, ezetimibe Cardiac Risk Factors: Family hx, HTN, HLD, former smoker Previous Cardiac Procedures: Cardiac cath Pretest Chest Pain Characteristics: None Exercise History: Indeterminate Physical Disabilities: None Lung Sounds: Clear to auscultation Heart Sounds: Regular Stress Test Details Test: Exercise stress testing was performed using a Live protocol. Rest Stress HR Resting HR Supine: 71 bpm Max Heart Rate (APMHR): 147 bpm Resting HR Standin bpm Target HR (85% APMHR): 125 bpm Max HR Achieved: 145 bpm % of APMHR: 99 Recovery HR: 82 bpm HR response to stress: Accelerated HR response to stress Comment: unable to determine due to significant artifact BP Resting BP Supine: 138/78 mmHg Resting BP Standin/78 mmHg Max BP: 168/90 mmHg Recovery BP: 138/68 mmHg BP response to stress: Normal blood pressure response to stress. ECG Resting ECG: Sinus Rhythm Ectopy: Occasional PAC's Stress ECG: Unable to interpret due to significant artifact ST Change: Nondiagnostic, significant artifiact Comment: Unable to interpret due to significant artifact Recovery ECG: Sinus Rhythm Recovery ST Change: Downsloping ST depression, Horizontal ST depression, Upsloping ST depression Lead(s): II, III, aVF, V3 Recovery ST Deviation: 1-3 mm Recovery Arrhythmia: Frequent PAC's, couplets Clinical Reason for Termination: Dizziness, fatigue, significant artifact Stress Symptoms: Dyspnea, General Fatigue Exercise duration: 02 min06 sec Highest Stage Reached: Stage 1: 1.7 mph at 10% grade. Exercise capacity: 2.6 METs Angina Score: None Comer Treadmill Score: -0.2 Rate Pressure Product: [id number] Stress ECG Conclusion 1. Resting electrocardiogram was within normal limits 2. Patient exercised on the Live protocol. There was very poor exercise capacity as the patient was only able to walk for 2 minutes and 6 seconds 3. Accelerated heart rate response to exercise. Peak heart rate achieved was 99% of predicted for ag e 4. Electrocardiogram during exercise did not demonstrate any evidence of myocardial ischemia 5. In recovery there was nondiagnostic ST depression 6. Atrial and ventricular ectopic beats were noted Comer Treadmill Score is -0.2 which is Moderate risk. Stress Test Summary STAGE Time (mins) Speed (mph) Grade (%) HR BP SpO2 SYMPTOMS METS Supine 71 138/78 98 Standing 72 140/78 98 1 3 1.7 10 135 4.5 1 min recovery 92 168/90 89 3 min recovery 87 150/80 6 min recovery 82 138/86 98
== END ==
PROVIDERS: PCP Nurse Practitioner Family; Visit Provider Nurse Practitioner Family
DX: R07.9 Chest pain, unspecified (principal)
CPT/HCPCS: 93016; 93018; 93017

== ENCOUNTER 2023-07-23 09:49 | Outpatient (RCR) | payer MEDICARE, MEDICAID, SELFPAY | END 2023-08-08 23:59 | disposition home or self-care (01) | LOC: CARDOPNVT 09:49 | PROVIDERS: PCP Nurse Practitioner Family; Visit Provider Nurse Practitioner Family | DX: R00.0 Tachycardia, unspecified (principal) | CPT/HCPCS: 93225 ==

== ENCOUNTER 2023-08-13 09:37 | Outpatient (RCR) | payer MEDICARE, MEDICAID, SELFPAY ==
--- NOTE | 2023-08-13 09:30 | HOLTER_ITS ---
APPROVED REPORT Conclusion This is a 48-hour Holter monitor Predominant rhythm was sinus with an average heart rate of 79. Minimum was 62, maximum 120 There were rare isolated atrial and ventricular ectopic beats A total of 4 self-limited atrial runs occurred. The longest of these was 4 beats in duration There was no atrial fibrillation, no high-grade AV block, no pauses greater than 3 seconds Patient symptoms of fast heartbeat were reported without corresponding dysrhythmia
== END 2023-09-08 23:59 | disposition home or self-care (01) ==
LOC: CARDOPNVT 09:37
PROVIDERS: PCP Nurse Practitioner Family; Visit Provider Internal Medicine Cardiovascular Disease
DX: R00.2 Palpitations (principal)
CPT/HCPCS: 93227; 93225; 93226

== ENCOUNTER → 2024-02-09 12:55 | Outpatient (BNVA) | payer MEDICARE, MEDICAID, SELFPAY | PROVIDERS: PCP Nurse Practitioner Family; Referring Provider Nurse Practitioner Family; Visit Provider Nurse Practitioner Adult Health | DX: G44.329 Chronic post-traumatic headache, not intractable (principal) | CPT/HCPCS: 99215 ==

== ENCOUNTER → 2024-02-25 01:15 | Outpatient (CLI) | payer MEDICARE, MEDICAID, SELFPAY ==
--- NOTE | 2024-02-25 | DI.NM_ITS ---
APPROVED REPORT Exam: Pharmacologic Patient Location: Out-Patient Room/Bed: Stress Nurse: May Severino RN Ordering Provider:SIGRID CENTENO, Contact Number: [phone] BMI: 24.99 Baseline Rhythm: Sinus Rhythm Comment: Occasional PAC's Indications: Chest pain, unspecified, pressure w/SOB, presyncope episode w/ exertion Medical History Medical History: Insomnia, lyme disease, HTN, retinopathy, hearing loss, graves disease, anxiety, OA, hypothyroid, HTN, HLD Cardiac Medications: Levothyroxine, hydrochlorothiazide, rosuvastatin, ambien Allergies: Ezetimibe, trazodone, indomethacin Cardiac Risk Factors: HTN, HLD, former smoker Previous Cardiac Procedures: HTN, HLD, former smoker Pretest Chest Pain Characteristics: None Exercise History: Physically active Physical Disabilities: None Lung Sounds: Clear to auscultation Heart Sounds: Regular Stress Test Details Test: Pharmacologic stress testing performed using 0.4 mg of regadenoson per 5 mL given IV over 10 s econds. Reason for pharmacologic stress test: Artifact. Nuclear Acquisition: Rest Tc-99m/Stress Tc-99m 1 day Rest Isotope: Tc-99m Sestamibi. Dose: 10.0 Date: 02/25/2024 Injection Time: 1100 Stress Isotope: Tc-99m Sestamibi. Dose: 31.0 Date: 02/25/2024 Injection Time: 1305 HR Resting HR Supine: 73 bpm Max Heart Rate (APMHR): 146.847285 bpm Target HR (85% APMHR): 124.653763 bpm Max HR Achieved: 111 bpm % of APMHR: 76.03 Recovery HR: 83 bpm BP Resting BP Supine: 132/72 mmHg Max BP: 142/62 mmHg Recovery BP: 132/64 mmHg ECG Resting ECG: Sinus Rhythm Ectopy: Occasional PAC's Stress ECG: Sinus Tachycardia ST Change: Nondiagnostic low heart rate, Downsloping ST depression Lead(s): inferior leads Maximum ST Deviation: 1-2 mm Arrhythmia: Occasional PAC's Recovery ECG: Sinus Rhythm Recovery ST Change: Nondiagnostic low heart rate, Downsloping ST depression Lead(s): inferior leads Comment: ST depressions returning to baseline Clinical Stress Symptoms: Chest pressure Rate Pressure Product: [id number] Stress ECG Conclusion 1. Resting EKG showed minor St abnormalities 2. Patient underwent testing using pharmacologic stress with regadenosan 3. Peak heart rate achieved was 76% of predicted for age 4. Electrocardiographic portion of the test was notable for diffuse ST depression and prolonged QT in terval 5. See MPI report Stress Test Summary STAGE HR BP SpO2 Symptoms NOTES Supine 73 132/72 1 min post Lexiscan injection 105 136/62 Chest pressure 3 min post Lexiscan injection 102 142/62 6 min post Lexiscan injection 90 132/64 97 Chest pressure resolved MPI Conclusion Myocardial perfusion is normal . There is no ischemia or evidence of prior infarctio EF is 89%. Wall motion is normal Radiologist Interpretation Radiologist agrees with Absorption Plant Operator's Interpretation. Radiologist Interpretation by: Swetha Saldana MD Interpretation Date/Time: 02/26/2024 15:23:26
[2024-02-25] MEDS: Regadenoson 0.4 MG/5 ML SYR IVP (12:57)
== END ==
PROVIDERS: PCP Nurse Practitioner Family; Visit Provider Nurse Practitioner Family
DX: R07.9 Chest pain, unspecified (principal); R06.02 Shortness of breath
CPT/HCPCS: 78452; 93016; 93018; 93017; J2785

== ENCOUNTER → 2024-03-04 00:13 | Outpatient (CLI) | payer MEDICARE, MEDICAID, SELFPAY ==
--- NOTE | 2024-03-04 | DI.MAMMO_ITS ---
Exam(s) MAMMO SCREENING EXAM: MAMMO SCREENING CLINICAL HISTORY: SCREENING, Z12.31 TECHNIQUE: Bilateral full field digital CC and MLO mammographic images were obtained with 3D tomosyn thesis and utilizing computer aided detection (CAD). COMPARISON: Available for comparison. FINDINGS: Masses/Architectural Distortion: None seen. Microcalcifications: No suspicious pleomorphic-type are seen. Skin Thickening/Nipple Retraction: None. IMPRESSION: 1. No significant interval change with no specific features of malignancy noted. 2. Unless there is more urgent need, screening mammography is recommended, as per [place] guidelines. BI-RADS Category 1 - Negative Breast Density - Category A - Almost entirely fatty Breast density category C or D implies that the patient has dense breast tissue. Dense breast tissue is very common and is not abnormal but dense breast tissue can make it harder to find cancer on a ma mmogram. Also, dense breast tissue may increase their breast cancer risk. This information about the result of the mammogram report was provided to the patient to raise their awareness. Use this report when you speak with the patient about their risks for breast cancer, which includes their family hist ory. At that time, you may recommend for more screening tests (Ultrasound or MRI) as they might be us eful based on their risk. A negative radiographic report should not delay biopsy if a dominant or clinically suspicious mass is present. Up to ten percent of cancers are not identified on mammography. A negative report may reinforce clinical impression. Adenosis and dense breasts may obscure an underlying neoplasm. False positive reports average 6 to 10%. Patient will receive a letter notifying them of these results.
== END ==
PROVIDERS: PCP Nurse Practitioner Family; Visit Provider Nurse Practitioner Family
DX: Z12.31 Encounter for screening mammogram for malignant neoplasm of breast (principal)
CPT/HCPCS: 77063; 77067

== ENCOUNTER → 2024-03-31 13:16 | Outpatient (BNVA) | payer MEDICARE, MEDICAID, SELFPAY | PROVIDERS: PCP Nurse Practitioner Family; Referring Provider Nurse Practitioner Family; Visit Provider Physical Therapy Assistant | DX: Z12.11 Encounter for screening for malignant neoplasm of colon (principal); Z86.010 Personal history of colon polyps; Z80.0 Family history of malignant neoplasm of digestive organs ==

== ENCOUNTER 2024-04-13 08:53 | Day surgery (SDC) | payer MEDICARE, MEDICAID, SELFPAY ==
--- NOTE | 2024-04-13 07:09 | W.ANESPRE ---
General Info Date of Service Date Performed: 04/13/24 Height: 5 ft Weight: 57.153 kg Body Mass Index (BMI): 24.6 Surgical Procedure: Operation Date: 04/13/24 11:05 Proposed Procedure Side Surgeon laura Ulloa MD Meds Allergies and Home Medications Allergies Allergy/AdvReac Type Severity Reaction Status Date / Time ezetimibe [From Zetia] Allergy Severe none noted Verified 04/13/24 09:21 on referral trazodone Allergy Severe none noted Verified 04/13/24 09:21 on referral indomethacin sodium Allergy Mild elevates BP Verified 04/13/24 09:21 [From Indocin] Home Medication Medication Instructions Recorded acetaminophen 500 mg tablet 500 mg PO Q8H PRN 09/19/15 (Tylenol Extra Strength) hydrochlorothiazide 50 mg tablet 50 mg PO DAILY 09/19/15 multivitamin (Daily Multiple 1 ea PO DAILY 09/19/15 tablet) zolpidem 10 mg tablet (Ambien) 10 mg PO HS PRN 09/19/15 cholecalciferol (vitamin D3) 25 25 mcg PO DAILY 01/30/21 mcg (1,000 unit) capsule loperamide 2 mg capsule 2 mg PO Q6H PRN 01/30/21 (Anti-Diarrheal (loperamide)) naproxen sodium 220 mg capsule 220 mg PO BID PRN 01/30/21 (Aleve) rosuvastatin 10 mg tablet (Crestor) 10 mg PO DAILY 01/30/21 albuterol sulfate 90 mcg/actuation 2 puff inhalation Q4H PRN 09/22/22 aerosol inhaler (ProAir HFA) nitroglycerin 0.4 mg sublingual 0.4 mg sublingual DIRECTED 09/22/22 tablet (Nitrostat) doxepin 10 mg capsule 10 mg PO QHS 08/25/23 fluticasone propionate 50 2 spray intranasal DAILY 08/25/23 mcg/actuation nasal spray,suspension levothyroxine 112 mcg tablet 112 mcg PO DAILY 03/25/24 (Synthroid) riboflavin (vitamin B2) 100 mg 200 mg PO DAILY 03/25/24 tablet bisacodyl 5 mg tablet,delayed 5 mg PO ONCE #4 tabs 03/31/24 release (Dulcolax (bisacodyl)) polyethylene glycol 3350 17 17 g PO ONCE #238 grams 03/31/24 gram/dose oral powder Current Visit Medications: Current Medications Generic Name Dose Route Start Last Admin Trade Name David PRN Reason Stop Dose Admin Ringer's Solution 1,000 mls @ 80 mls/hr 04/13/24 06:00 IV 04/13/24 23:59 INFUSION GLORIA IV Miscellaneous Supplies 1 each 04/13/24 06:00 Iv Access IV 04/13/24 23:59 DIRECTED GLORIA Sodium Chloride 0 ml 04/13/24 06:00 Normal Saline Flush 10 Ml Syr IV 04/13/24 23:59 PRN PRN Sodium Chloride 0 ml 04/13/24 06:00 Normal Saline 10 Ml Vial IJ 04/13/24 23:59 DIRECTED PRN Sterile Water 0 ml 04/13/24 06:00 Water,Injection,Sterile 10 Ml Vial IJ 04/13/24 23:59 DIRECTED PRN PFSH Active Problems Active Problems: Problem Status Onset Code Chronic post-concussion headache G44.329 Stabbing headache G44.85 Fracture of fourth metacarpal bone of right hand 09/11/22 S62.304A Colon polyp, hyperplastic ~05/2021 K63.5 Serrated adenoma of colon ~05/2021 D12.6 Hx of adenomatous colonic polyps Z86.010 Contusion of foot S90.30XA Medical History Medical History Sensorineural hearing loss Chronic insomnia Abnormal laboratory test Bilateral knee pain Lyme disease, acute Medication management Nevus Hypertensive retinopathy of both eyes Family history of malignant melanoma Displaced fracture of shaft of fourth metacarpal bone Tachycardia Headache Family history of colon cancer Family history of breast cancer Lyme disease Hearing loss Tobacco use Insomnia Syncope Pt. denies this Graves disease Pt. states she had a thyroidectomy Lymphocytic colitis Situational anxiety Heart murmur Pt. states last time she was at her PCP, there was no mumur heard. Osteoarthritis Myositis Coronary artery disease Pt. denies this Hypothyroidism Hypertension Hyperlipidemia Osteopenia Hemangioma Elevated CPK Chest pain Pt. states she has not had chest pain in over several years Surgical History Surgical History History of colonoscopy with polypectomy (~05/17/21) History of colonoscopy (~12/18/15) Tobacco Smoking/Tobacco Use Status: Former Tobacco Use Alcohol Alcohol Intake: current Alcohol intake frequency: a few times a month Substance Use Substance use: Never Substance use type: does not use Vital Signs and Lab Results Lab Results Blood Type / Crossmatch: No Data to Display Complete Blood Count: No Data to Display Complete Metabolic Panel: No Data to Display Liver Function Panel: No Data to Display Coagulation Panel: No Data to Display Cardiac Panel: No Data to Display Arterial Blood Gas: No Data to Display Venous Blood Gas: No Data to Display Pancreas Panel: No Data to Display Thyroid Panel: No Data to Display Infectious Disease: No Data to Display Blood Cultures: No Data to Display Toxicology Panel: No Data to Display Imaging and Studies Imaging and Studies Study information below may be from another EMR and interpreted by another provider. Please see original notes in EMR for more complete details. Stress Test Summary: 02/2024: no ischemia noted Echocardiogram Summary: 09/2016: *STUDY CONCLUSIONS* Impressions: Cannot exclude infective endocarditis based on this study. Mitral and tricuspid valve with thickening. No obvious vegetations. Correlate clinically. Summary: 1. Left ventricle: The cavity size was normal. Wall thickness was normal. Systolic function was normal. The estimated ejection fraction was 55-60%. Wall motion was normal; there were no regional wall motion abnormalities. 2. Right ventricle: The cavity size was normal. Systolic function was normal. 3. Mitral valve: Mildly calcified annulus. Mildly thickened, mildly calcified leaflets anterior greater than posterior. Focal calcification of subchordal apparatus. There was mild regurgitation. 4. Tricuspid valve: Mildly thickened, mildly calcified leaflets. There was moderate regurgitation. Anesthesia Assessment and Plan Anesthesia History Personal History: No History of Anesthesia Complications Family History: No Family History of Anesthesia Complications Exercise Tolerance Exercise Tolerance: Metabolic Equivalents>4 Pertinent Negatives Pertinent Negatives: No Symptoms of GERD Cardiac & Pulmonary Exam Cardiac Exam: Normal S1/S2 Heart Sounds Pulmonary Exam: Clear Bilateral Breath Sounds Implantable Cardiac Device Does patient have a Pacemaker or an ICD?: No Airway Exam Known Difficult Airway: No Mallampati Class: 3 Mouth Opening: Normal (> 3cm) Thyromental Distance: Less than 3 cm Neck Range of Motion: Full ROM Neck Circumference: Normal Teeth Condition: Normal Dentition ASA Classification ASA Score: ASA 3 Emergency Case?: No NPO Status NPO Status: NPO Clears >2 hours, Solids >8 hours Anesthesia Plan Resuscitation Status: Full Code Anesthesia Technique: General Anesthesia Airway Planned: Natural Airway Monitors Used: Standard Monitors Preoperative Comments:: Advised patient she will need a new echo prior to other procedures. She is currently in between PCP's
[2024-04-13 09:02] VITALS: BP 127/68; PULSE 76; RESP 18; TEMP 36.4; O2SAT 96
[2024-04-13] MEDS: Lactated Ringers 1,000 ML 80 ML IV (09:28)
[2024-04-13 09:44] VITALS: BMI 24.6
--- NOTE | 2024-04-13 10:02 | W.COLOREPORT ---
Date of service: 04/13/24 Time of Service: 10:02 Colonoscopy Report Procedure Description: PROCEDURES PERFORMED: 1. Colonoscopy with cold forceps polypectomy x2 2. Cold forceps biopsy PREOPERATIVE DIAGNOSIS: Surveillance colonoscopy, colon polyps, strong family history POSTOPERATIVE DIAGNOSIS: Mild sigmoid diverticulosis, colon polyps, grade 2 internal hemorrhoids SURGEON: Mercedes Ulloa MD INDICATION FOR PROCEDURE: the patient is a 74-year-old woman with a history of sessile serrated polyps and a family history of colon cancer in her father. No symptoms, due for surveillance. FINDINGS: Terminal ileum was normal. In the cecum and the ascending colon, there is mild, non-? specific inflammation noted that looked visually like colitis. I took cold forceps biopsies of this. This was incidental. In the sigmoid colon there are mild diverticular changes but no active diverticulitis and no stricture or fibrosis. In the distal sigmoid colon was a 3-5 mm flat, sessile, flesh?colored polyp that was removed piecemeal with cold forceps technique. In the rectum a small, hyperplastic?appearing 2-3 mm sessile polyp was removed with cold forceps technique. Unfortunately that specimen was lost. Grade 2 internal hemorrhoids noted. SURVEILLANCE interval/FOLLOW-UP: 3 years because of the history in her father and her personal history and finding new polyps today SPECIMENS: Yes EBL: Minimal COMPLICATIONS: None QUALITY of prep: Excellent Procedure in detail: The patient gave written consent and was in agreement with the indications, the potential risks as well as the benefits of the procedure. They were taken to the endoscopy suite and laid in the left lateral decubitus position. A timeout was performed and anesthesia was administered which was tolerated well. I started the procedure. Digital rectal and visual examination was performed and grossly within normal limits. A well-lubricated flexible colonoscope was then introduced and passed without any notable difficulty all the way to the cecum identified by the ileocecal valve and the appendiceal orifice. The terminal ileum was briefly intubated and looked normal. The scope was then slowly withdrawn with the above-noted findings. The patient tolerated the procedure well and was taken to the PACU in hemodynamically stable condition.
--- NOTE | 2024-04-13 10:03 | W.PM.DSUDISC ---
Date of service: 04/13/24 Time of Service: 10:03 Discharge Plan Disposition Patient Disposition: Home Condition: Good Discharge Details Attending Provider: Antonio Ulloa Primary Care Provider: Jil Boyce Home Meds and New Rx's Prescriptions: No Action bisacodyl [Dulcolax (bisacodyl)] 5 mg tablet,delayed release (DR/EC) 5 mg PO ONCE Qty: 4 0RF Rx Instructions: Take per colonoscopy instructions provided by ordering providers office polyethylene glycol 3350 17 gram/dose powder 17 g PO ONCE Qty: 238 0RF Rx Instructions: Take per colonoscopy instructions provided by ordering providers office multivitamin [Daily Multiple] 1 EACH tablet 1 ea PO DAILY hydrochlorothiazide 50 MG tablet 50 mg PO DAILY acetaminophen [Tylenol Extra Strength] 500 MG tablet 500 mg PO Q8H PRN zolpidem [Ambien] 10 MG tablet 10 mg PO HS PRN loperamide [Anti-Diarrheal (loperamide)] 2 mg capsule 2 mg PO Q6H PRN naproxen sodium [Aleve] 220 mg capsule 220 mg PO BID PRN cholecalciferol (vitamin D3) 25 mcg (1,000 unit) capsule 25 mcg PO DAILY rosuvastatin [Crestor] 10 mg tablet 10 mg PO DAILY nitroglycerin [Nitrostat] 0.4 mg tablet, sublingual 0.4 mg Sublingual DIRECTED albuterol sulfate [ProAir HFA] 90 mcg/actuation HFA aerosol inhaler 2 puff Inhalation Q4H PRN fluticasone propionate 50 mcg/actuation spray,suspension 2 spray intranasal DAILY Rx Instructions: administer into each nostril doxepin 10 mg capsule 10 mg PO QHS riboflavin (vitamin B2) 100 mg tablet 200 mg PO DAILY levothyroxine [Synthroid] 112 mcg tablet 112 mcg PO DAILY Discharge Instructions Additional Instructions: FINDINGS: Some new polyps were found today, 2 of them. They are nothing to worry about since they were removed. This is why we keep doing the colonoscopies. Because of this you should do another colonoscopy in 3 years. Stand Alone Forms: Anesthesia Discharge Meredith Alva (SAVITA) Activity:: Activity as Tolerated Diet:: As Tolerated
--- NOTE | 2024-04-13 10:36 | BOWEL_PTH ---
PATIENT: Gabriela Hernandez LOC: [facility] U#:[id number] AGE/SX: 74/F ROOM: RE04/13/[address]: Antonio Ulloa : 1950 BED: DIS: 04/13/2024 SPEC #: [id number] RECD: 04/13/24 13:08 STATUS: [facility] #: [id number] PAT: 04/13/24 10:[address]: Antonio Ulloa DEPT: Surgical Specimen RECD BY: Ekta Jaramillo ENTERED: 04/13/24 13:09 SP TYPE: Bowel OTHR DR: Jil Rider Tissues: 1 - BIOPSY BOWEL 2 - BIOPSY BOWEL Procedures: GROSS AND MICRO LEVEL 4 Comments: [id number]
[2024-04-13 10:53] VITALS: BP 91/77; PULSE 73; RESP 16; TEMP 36.2; O2SAT 98
[2024-04-13 11:22] VITALS: BP 110/64; PULSE 73; RESP 16; TEMP 36; O2SAT 98
--- NOTE | 2024-04-13 12:24 | W.ANESPOSTOP ---
Postoperative Evaluation Date, Time and Location Date Performed: 04/13/24 Time Performed: 10:55 Patient Location: Day Surgery Unit Vital Signs Most Recent Imported Vital Signs: Most Recent Vital Signs Temp Pulse Resp BP Pulse Ox 36 C L 73 16 110/64 98 04/13/24 11:22 04/13/24 11:22 04/13/24 11:22 04/13/24 11:22 04/13/24 11:22 Pain Score Most Recent Pain Score: Most Recent Pain Score Pain Level 0 04/13/24 11:22 Assessment Mental Status: Awake (Alert & Oriented to Patient Baseline) Airway and Respiratory Function: Patent airway with normal (patient baseline) respiratory exam Cardiovascular Function: Hemodynamically Stable Hydration Status: Adequately Hydrated Nausea & Vomiting: No Nausea or Vomiting Pain: Pt. Denies Any Pain Peripheral Nerve Block: Patient did not receive a nerve block
== END 2024-04-13 11:57 | disposition home or self-care (01) ==
LOC: SUR 08:53
PROVIDERS: PCP Nurse Practitioner Family; Visit Provider Student in an Organized Health Care Education/Training Program
PROC: 0DJD8ZZ Inspection of Lower Intestinal Tract, Via Natural or Artificial Opening Endoscopic (ICD-10-PCS; CPT 45378; principal; 2024-04-13 11:00)
DX: Z12.11 Encounter for screening for malignant neoplasm of colon (principal); K63.5 Polyp of colon; Z80.0 Family history of malignant neoplasm of digestive organs
CPT/HCPCS: 45380; 00123; 88305; J2704

== ENCOUNTER → 2024-05-04 01:09 | Outpatient (CLI) | payer MEDICARE, MEDICAID, SELFPAY ==
--- NOTE | 2024-05-04 13:59 | DI.US_ITS ---
APPROVED REPORT EXAM: Comprehensive 2D, Doppler, and color-flow Echocardiogram Patient Location: Out-Patient Chemical Research Engineer: Karla Street RDCS (AE) Indications: STINSON< Syncope and collapse Other Information Study Quality: Adequate Conclusion Normal left ventricular wall thickness and chamber size. Ejection fraction is 60%. Wall motion is n ormal Normal right ventricular size and function Both atria are normal in size There is mitral annular calcification and trace to mild mitral regurgitation Mild tricuspid regurgitation. Estimated right ventricular systolic pressure is 32 mmHg Wall motion Left Ventricle The left ventricle is normal size. The left ventricular systolic function is normal. The left ventric ular ejection fraction is within the normal range. There is normal left ventricular wall thickness. T here is normal LV segmental wall motion. There is no ventricular septal defect visualized. LVEF is 60 %. Right Ventricle The right ventricle is normal size. The right ventricular systolic function is normal. Atria The left atrium size is normal. The right atrium size is normal. The interatrial septum is intact wit h no evidence for an atrial septal defect. Aortic Valve The aortic valve is normal in structure. Aortic valve is trileaflet. There is no aortic valvular sten osis. No aortic regurgitation is present. Mitral Valve Mild mitral to moderate annular calcification. No evidence of mitral valve stenosis. Trace to mild mi tral regurgitation. Tricuspid Valve The tricuspid valve is normal in structure. There is no tricuspid valve stenosis. Mild tricuspid reg urgitation. The RVSP is 31.8_ mmHg. Pulmonic Valve The pulmonary valve is normal in structure. There is no pulmonic valvular stenosis. Trace pulmonic re gurgitation. Great Vessels The aortic root is normal in size. The ascending aorta is normal in size. Aortic arch is not well vis ualized. IVC is normal in size and collapses >50% with inspiration. Pericardium There is no pericardial effusion. 2D Dimensions IVSD d PLAX 0.92 cm F: 0.6-1.0 Ao Root d 2.56 cm F: 2.7 - 3.3 LVPW d PLAX 0.88 cm F: 0.6 - 1.0 Ao Asc Diam d 3.14 cm F: 2.3 - 3.1 LVID d PLAX 3.80 cm F: 3.8 - 5.2 LVDs 2.57 cm F: 2.2 - 3.5 LV EF Teichholz 61.3 % FS 32.31 % LV EDV (Teich) 62.0 mL LV ESV (Teich) 24.0 mL M-Mode TAPSE 2.65 cm (M/F) >1.7 Auto EF LV EDV A4C 62.0 mL LV EDV A2C 58.9 mL LV EDV BP 61.1 mL LV ESV A4C 24.2 mL LV ESV A2C 22.9 mL LV ESV BP 23.5 mL LVEF(%) A4C 61.0 % LVEF(%) A2C 61.1 % LVEF(%) BP 61.6 % LV SV A4C 37.9 ml LV SV A2C 36.0 ml LV SV BP 37.6 ml LV CO A4C 2.6 L/min LV CO A2C 2.8 L/min LV CO BP 2.7 L/min HR A4C 68.84 BPM HR A2C 77.76 BPM LV EDV Index (BP) LA Volume LA Length A4C 5.0 cm LA Length A2C 5.3 cm LA Area A4C s 16.57 cm2 LA Area A2C s 16.39 cm2 LA Vol A4C A-L 46.81 mL LA Vol A2C A-L 43.40 mL LA Vol Biplane A-L 46.3 mL LA Vol/BSA A4C A-L LA Vol/BSA A2C A-L LA Vol/BSA BP A-L 30.7 mL/m2 LA Vol A4C MOD 42.8 mL LA Vol A2C MOD 39.4 mL LA Vol BP MOD 42.1 mL RA Volume RA Area A4C 12.0 cm2 RA ESV A4C (A-L) 26.3mL RA Vol/BSA A4C A-L RA Length A4C 4.6 cm RA ESV A4C (MOD) 26.0mL LV Diastology MV E' medial 0.097 (>0.07 m/s) MV E Vmax 1.10 (0.4-1.3 m/s) MV E/E' MED 11.30 (<14) MV A Vmax 1.00 (0.4-1.3 m/s) MV E' lateral 0.103 (>0.1 m/s) E/A Ratio 1.1 MV E/E' LAT 10.71 (<14) MV E' Average 0.100 m/s MV E/E'(average) 11.00 Aortic Valve AoV Vmax 1.55 m/s LVOT Vmax 1.22 m/s AoV Peak Grad 9.7 mmHg LVOT Peak Grad 6.0 mmHg AoV Area (Vmax) 2.14 cm2 LVOT VTI 0.239 m AoV VTI 0.337 m LVOT Mean Grad 2.8 mmHg AoV Mean Long. 1.04 m/s LVOT SV 65.26 mL AoV Mean Grad 4.9 mmHg LVOT Diam s 1.85 cm AoV Area (VTI) 1.94 cm2 Velocity Ratio 0.79 Mitral Valve MV DT 229 (160-240 msec) MV Vmax TIPS 1.09 m/s MV Mean Grad 2.1 (<2mmHg) MV VTI 0.321 m Pulmonary Valve PV Vmax 0.99 (0.5-1.5 m/s) RVOT Vmax 0.67 m/s PV Peak Grad 4.0 mmHg RVOT Peak Gr. 1.8 mmHg PV Mean Long 0.71 m/s RVOT VTI 0.150 m PV Mean Grad 2.2 mmHg RVOT Mean Gr. 1.0 mmHg Tricuspid Valve RA Pressure 3.00 mmHg TR Vmax 2.68 m/s TV S' 0.17 m/s TR Peak Grad 28.7 mmHg RVSP (TR) 31.8 mmHg
== END ==
PROVIDERS: PCP Nurse Practitioner Family; Visit Provider Physician Assistant Medical
DX: R06.09 Other forms of dyspnea (principal)
CPT/HCPCS: 93306

== ENCOUNTER → 2024-05-10 10:30 | Outpatient (BNVA) | payer MEDICARE, MEDICAID, SELFPAY | PROVIDERS: PCP Nurse Practitioner Family; Referring Provider Nurse Practitioner Family; Visit Provider Nurse Practitioner Adult Health | DX: G44.329 Chronic post-traumatic headache, not intractable (principal) | CPT/HCPCS: 99213 ==

== ENCOUNTER 2024-06-13 13:38 | Outpatient (REF) | payer MEDICARE, MEDICAID, SELFPAY ==
[2024-06-13 16:50] LABS: ALT 39 U/L (14-59); AST 35 U/L (15-37); Alkaline Phosphatase 70 U/L (46-116); Anion Gap 7.7 mmol/L (3-11); BUN 12 mg/dL (7-18); Bilirubin, Total 0.42 mg/dL (0.2-1.0); CO2 32.3 mmol/L (21.0-32.0); CREATININE 0.7 mg/dL (0.55-1.02); Chloride 102 mmol/L (98-107); Cholesterol 176 mg/dL (<200); Glucose 110 mg/dL (74-106); Potassium 3.6 mmol/L (3.5-5.1); Sodium 142 mmol/L (136-145); TSH (W/Ref FT4) 0.17 uIU/mL (0.36-3.74); Total Protein 7.5 g/dL (6.4-8.2); Triglyceride 95 mg/dL (<150)
[2024-06-13 18:10] LABS: Calculated LDL 82 mg/dL (<100); FREE T4 1.52 ng/dL (0.76-1.46); HDL Cholesterol 75 mg/dL (40-60)
== END 2024-06-13 13:39 | disposition home or self-care (01) ==
LOC: NCHCN 13:38
PROVIDERS: PCP Physician Assistant Medical; Visit Provider Physician Assistant Medical
DX: I10 Essential (primary) hypertension (principal); E03.9 Hypothyroidism, unspecified; I25.10 Atherosclerotic heart disease of native coronary artery without angina pectoris
CPT/HCPCS: 80053; 80061; 84439; 84443

== ENCOUNTER 2024-11-03 21:38 | Outpatient (REF) | payer MEDICARE, MEDICAID, SELFPAY ==
[2024-11-03 19:20] LABS: Anion Gap 11.4 mmol/L (3-11); BUN 19 mg/dL (7-18); CO2 27.6 mmol/L (21.0-32.0); CREATININE 0.8 mg/dL (0.55-1.02); Calcium 9.6 mg/dL (8.5-10.1); Chloride 100 mmol/L (98-107); Estimated GFR 77.27 (mL/min/1.73m2); Glucose 99 mg/dL (74-106); Magnesium 1.5 mg/dL (1.8-2.4); Potassium 3.6 mmol/L (3.5-5.1); Sodium 139 mmol/L (136-145)
== END 2024-11-03 21:39 | disposition home or self-care (01) ==
LOC: NCHCN 21:38
PROVIDERS: PCP Physician Assistant Medical; Visit Provider Family Medicine
DX: E87.6 Hypokalemia (principal)
CPT/HCPCS: 80048; 83735

== ENCOUNTER 2024-12-16 14:24 | Outpatient (REF) | payer MEDICARE, MEDICAID, SELFPAY ==
[2024-12-16 16:13] LABS: Abs Immature Grans 0.02 10^3/uL (0.0-0.06); Absolute Basophil Count 0.08 10^3/uL (0.0-0.2); Absolute Eosinophil Count 0.11 10^3/uL (0.0-0.7); Absolute Lymphocyte Count 2.59 10^3/uL (1.2-3.4); Absolute Monocyte Count 0.62 10^3/uL (0.1-0.8); Absolute Neutrophil Count 4.11 10^3/uL (1.2-6.7); Basophils % 1.1 %; Eosinophils % 1.5 %; HCT 41.2 % (36.0-46.0); HGB 13.3 g/dL (11.2-15.7); Immature Grans % 0.3 %; Lymphocytes % 34.4 %; MCH 29.2 pg (27.0-33.0); MCHC 32.3 % (32.0-36.0); MCV 90 fL (80-95); MPV 11.6 fL (8.0-11.0); Monocytes % 8.2 %; Neutrophils % 54.5 %; Platelet Count 261 10^3/uL (130-400); RBC 4.56 10^6/uL (3.93-5.22); RDW 13.2 % (11.7-14.6); RDW-SD 43.7 fL; WBC 7.53 10^3/uL (4.4-10.8)
[2024-12-16 17:12] LABS: BUN 20 mg/dL (7-18); CREATININE 0.8 mg/dL (0.55-1.02); Calculated LDL 75 mg/dL (<100); Chloride 99 mmol/L (98-107); Cholesterol 181 mg/dL (<200); Estimated GFR 77.27 (mL/min/1.73m2); Glucose 93 mg/dL (74-106); HDL Cholesterol 81 mg/dL (40-60); Magnesium 1.8 mg/dL (1.8-2.4); Potassium 3.8 mmol/L (3.5-5.1); Sodium 138 mmol/L (136-145); TSH 2.71 uIU/mL (0.36-3.74); Triglyceride 128 mg/dL (<150)
[2024-12-16 17:40] LABS: FREE T4 1.26 ng/dL (0.76-1.46)
== END 2024-12-16 14:25 | disposition home or self-care (01) ==
LOC: NCHCN 14:24
PROVIDERS: PCP Physician Assistant Medical; Visit Provider Family Medicine
DX: I25.10 Atherosclerotic heart disease of native coronary artery without angina pectoris (principal); E03.9 Hypothyroidism, unspecified; E83.42 Hypomagnesemia
CPT/HCPCS: 80048; 80061; 83735; 84439; 84443; 85025

== ENCOUNTER 2025-08-23 00:15 | Outpatient (CLI) | payer MEDICARE, MEDICAID, SELFPAY ==
--- NOTE | 2025-08-23 11:40 | DI.MAMMO_ITS ---
Exam(s) MAMMO SCREENING EXAM: MAMMO SCREENING CLINICAL HISTORY: SCREENING, Z12.31 TECHNIQUE: Bilateral full field digital CC and MLO mammographic images were obtained with 3D tomosynthesis and utilizing computer aided detection (CAD). COMPARISON: Comparison is made with prior examinations. FINDINGS: Masses/Architectural Distortion: No suspicious masses or areas of architectural distortion are present. Microcalcifications: No suspicious pleomorphic-type are seen. Skin Thickening/Nipple Retraction: None. IMPRESSION: 1. No significant interval change with no specific features of malignancy noted. 2. Unless there is more urgent need, screening mammography is recommended, as per [place] [employer] guidelines. BI-RADS Category 1 - Negative Breast Density - Category A - The breast are almost entirely fatty. Breast density Category C or D implies that the patient has dense breast tissue. Dense breast tissue can make it harder to find cancer on a mammogram. Dense breast tissue is also associated with an increased risk of breast cancer. This information about the result of the mammogram report was provided to the patient to raise their awareness. Use this report when you speak with the patient about their risks for breast cancer, which includes their family history. At that time, you may recommend additional screening tests (Ultrasound or MRI) as these tests may add significant information. A negative radiographic report should not delay biopsy if a dominant or clinically suspicious mass is present. Up to ten percent of cancers are not identified on mammography. A negative report may reinforce clinical impression. Adenosis and dense breasts may obscure an underlying neoplasm. False positive reports average 6 to 10%. Patient will receive a letter notifying them of these results.
== END 2025-08-23 00:35 ==
PROVIDERS: PCP Physician Assistant Medical; Visit Provider Family Medicine
DX: Z12.31 Encounter for screening mammogram for malignant neoplasm of breast (principal)
CPT/HCPCS: 77063; 77067

== ENCOUNTER 2025-08-29 19:29 | Outpatient (REF) | payer MEDICARE, MEDICAID, SELFPAY ==
[2025-08-29 19:31] LABS: Hemoglobin A1C 6.0 % (<5.7)
[2025-08-29 19:44] LABS: ALT 55 U/L (14-59); AST 42 U/L (15-37); Albumin 3.8 g/dL (3.4-5.0); Alkaline Phosphatase 69 U/L (46-116); Anion Gap 7.0 mmol/L (3-11); BUN 18 mg/dL (7-18); Bilirubin, Total 0.5 mg/dL (0.2-1.0); CO2 33.0 mmol/L (21.0-32.0); Calcium 9.8 mg/dL (8.5-10.1); Calculated LDL 73 mg/dL (<100); Chloride 100 mmol/L (98-107); Cholesterol 168 mg/dL (<200); Estimated GFR 76.79 (mL/min/1.73m2); Glucose 99 mg/dL (74-106); HDL Cholesterol 73 mg/dL (>or=50); Potassium 4.2 mmol/L (3.5-5.1); Sodium 140 mmol/L (136-145); TSH 1.60 uIU/mL (0.36-3.74); Total Protein 7.3 g/dL (6.4-8.2); Triglyceride 112 mg/dL (<150)
== END 2025-08-29 19:30 | disposition home or self-care (01) ==
LOC: NCHCN 19:29
PROVIDERS: PCP Physician Assistant Medical; Visit Provider Family Medicine
DX: Z13.1 Encounter for screening for diabetes mellitus (principal); E03.9 Hypothyroidism, unspecified; I10 Essential (primary) hypertension; E78.5 Hyperlipidemia, unspecified
CPT/HCPCS: 80053; 80061; 83036; 84439; 84443